=== PATIENT | male | born 1950 | race Caucasian/White ===

== ENCOUNTER 2020-04-03 15:11 | Outpatient (CLI) | payer MEDICARE, SELFPAY ==
--- NOTE | ~2020-04-03 | XR_ITS ---
EXAMINATION: XR ankle RT min 3V DATE: 04/03/2020 15:35 INDICATION: Right ankle pain. TECHNIQUE: 4 views of right ankle were obtained. COMPARISON: Right ankle radiographs 07/10/2008 FINDINGS: Bone alignment is normal. No fracture. There is mild osteoarthritis of the ankle joint and talonavicular joint. There is medial ankle soft tissue swelling. IMPRESSION: 1. Mild polyarticular osteoarthritis. Reviewed, dictated and finalized at location A.
== END 2020-04-03 15:12 | disposition home or self-care (01) ==
LOC: ANHIMG 15:17
PROVIDERS: PCP Internal Medicine; Visit Provider Nurse Practitioner
DX: M19.071 Primary osteoarthritis, right ankle and foot (principal)
CPT/HCPCS: 73610

== ENCOUNTER 2020-05-13 07:33 | Outpatient (CLI) | payer MEDICARE, SELFPAY ==
[2020-05-13 07:53] LABS: Basophils Absolute Auto 0.1 K/mm3 (0.0-0.1); Basophils Percent Auto 1.5 % (0.2-1.2); Eosinophils Absolute Auto 0.4 K/mm3 (0-0.3); Eosinophils Percent Auto 6.6 % (0-4.4); Hematocrit 48.4 % (42.0-52.0); Immature Granulocyte Absolute 0.04 K/mm3 (0.00-0.031); Immature Granulocyte Percent A 0.7 % (0-0.5); Lymphocytes Absolute Auto 1.59 K/mm3 (0.9-3.2); Lymphocytes Percent Auto 26.9 % (18.3-44.2); Mean Corpuscular HGB Conc 33.1 g/dl (32-36); Mean Corpuscular Hemoglobin 29.6 pg (26-34); Mean Corpuscular Volume 89.6 fl (80-100); Mean Platelet Volume 9.5 fl (7.4-10.4); Monocytes Absolute Auto 0.7 K/mm3 (0.1-0.6); Monocytes Percent Auto 12.5 % (2.6-8.5); Neutrophils Absolute Auto 3.1 K/mm3 (1.3-6.7); Neutrophils Percent Auto 51.8 % (45.5-73.1); Platelet Count Result 246 k/mm3 (150-375); Red Cell Distribution Width 13.5 % (11.5-14.5); White Blood Count 5.9 K/mm3 (4.5-10.0)
[2020-05-13 08:04] LABS: Alanine Aminotransferase 19 U/L (4-50); Albumin Level 4.1 g/dL (3.5-5.1); Alkaline Phosphatase 63 U/L (38-126); Anion Gap 8 mmol/L (8-16); Aspartate Amino Transferase 32 U/L (17-59); Bilirubin,Total 0.6 mg/dL (0.2-1.3); Blood Urea Nitrogen 21 mg/dL (9-20); Calcium 8.4 mg/dL (8.4-10.2); Carbon Dioxide 26 mmol/L (22-30); Chloride 105 mmol/L (98-107); Cholesterol 182 mg/dL (0-200); Estimated Glomerular Filt Rate > 60; Glucose 102 mg/dL (75-110); HDL Direct 51 mg/dL; Potassium 4.3 mmol/L (3.4-5.0); Sodium 139 mmol/L (137-145); Triglycerides 138 mg/dL (<150)
[2020-05-13 08:13] LABS: LDL Cholesterol Direct 101 mg/dL
[2020-05-13 08:32] LABS: Prostate Specific Antigen 0.6 ng/mL (< OR = 4.0)
== END 2020-05-13 07:34 | disposition home or self-care (01) ==
PROVIDERS: PCP Internal Medicine; Visit Provider Internal Medicine
DX: Z12.5 Encounter for screening for malignant neoplasm of prostate (principal); Z51.81 Encounter for therapeutic drug level monitoring; I10 Essential (primary) hypertension; Z79.899 Other long term (current) drug therapy
CPT/HCPCS: 36415; 80053; 80061; 84153; 84443; 85025; G0103

== ENCOUNTER 2020-05-30 08:25 | Outpatient (NON) | payer MEDICARE, SELFPAY ==
[2020-05-30 11:34] LABS: Influenza Control Positive
[2020-05-30 22:01] LABS: SARS-CoV-2 RNA PCR Positive
== END 2020-05-30 08:26 ==
PROVIDERS: PCP Internal Medicine; Visit Provider Internal Medicine
DX: U07.1 COVID-19 (principal)
CPT/HCPCS: 87635; 87804; C9803; U0003

== ENCOUNTER 2020-05-30 09:02 | Outpatient (CLI) | payer MEDICARE, SELFPAY ==
--- NOTE | ~2020-05-30 | XR_ITS ---
XR chest 2V 05/30/2020 09:35 Indication: Cough Procedure: PA and lateral views of the chest Comparison: No prior studies for comparison. Findings: There are patchy bilateral infiltrates of the mid and lower lung zones, compatible with pne umonia. Heart size normal. There are vertebroplasty changes in the lower thoracic spine with spinal f usion hardware partially visualized. There is scoliosis. Impression: 1: Patchy infiltrates of the mid and lower lung zones, compatible with pneumonia. Reviewed, dictated and finalized at location A. C STORE MANAGER Impression: 1: Patchy infiltrates of the mid and lower lung zones, compatible with pneumoni a.
[2020-05-30 10:01] LABS: Basophils Percent Auto 0.5 % (0.2-1.2); Eosinophils Percent Auto 0.3 % (0-4.4); Hemoglobin 15.5 g/dL (14.0-18.0); Immature Granulocyte Absolute 0.06 K/mm3 (0.00-0.031); Lymphocytes Absolute Auto 1.01 K/mm3 (0.9-3.2); Lymphocytes Percent Auto 16.7 % (18.3-44.2); Mean Corpuscular HGB Conc 33.7 g/dl (32-36); Mean Corpuscular Hemoglobin 29.6 pg (26-34); Mean Platelet Volume 10.1 fl (7.4-10.4); Monocytes Absolute Auto 0.8 K/mm3 (0.1-0.6); Monocytes Percent Auto 13.4 % (2.6-8.5); Neutrophils Absolute Auto 4.1 K/mm3 (1.3-6.7); Neutrophils Percent Auto 68.1 % (45.5-73.1); Platelet Count Result 217 k/mm3 (150-375); Red Blood Count 5.23 M/mm3 (4.6-6.20); Red Cell Distribution Width 13.2 % (11.5-14.5)
[2020-05-30 10:21] LABS: Alanine Aminotransferase 26 U/L (4-50); Albumin Level 3.7 g/dL (3.5-5.1); Alkaline Phosphatase 102 U/L (38-126); Anion Gap 8 mmol/L (8-16); Aspartate Amino Transferase 48 U/L (17-59); Blood Urea Nitrogen 18 mg/dL (9-20); Calcium 8.3 mg/dL (8.4-10.2); Carbon Dioxide 29 mmol/L (22-30); Chloride 98 mmol/L (98-107); Estimated Glomerular Filt Rate > 60; Glucose 97 mg/dL (75-110); Sodium 135 mmol/L (137-145)
== END 2020-05-30 09:03 | disposition home or self-care (01) ==
PROVIDERS: PCP Internal Medicine; Visit Provider Internal Medicine
DX: R05 Cough (principal); I10 Essential (primary) hypertension; R91.8 Other nonspecific abnormal finding of lung field
CPT/HCPCS: 36415; 71046; 80053; 85025; 87635; 87804; C9803; U0003

== ENCOUNTER 2020-06-01 10:23 | Inpatient (IN) | payer MEDICARE, SELFPAY ==
[2020-06-01] VITALS (16 sets, daily range): BP systolic 120–168; BP diastolic 63–98; PULSE 77–110; RESP 16–24; TEMP 36.3–37.1; O2SAT 89–96; BMI 35.5
--- NOTE | ~2020-06-01 | CT_ITS ---
EXAMINATION: CTA chest PE protocol DATE: 06/01/2020 14:08 INDICATION: Shortness of breath. COVID-19 pneumonia. TECHNIQUE: Computed tomography angiography (CTA) of the chest was performed with 100 mL Omnipaque-350 intravenous contrast timed to evaluate the pulmonary arteries. Coronal maximum intensity projection 3D-reconstructions were created by the technologist. Automated exposure control and iterative reconst ruction technique were employed. The dose-length product was 803.86 mGy-cm. COMPARISON: Chest single view 06/01/2020 FINDINGS: There are patchy groundglass and airspace opacities throughout the lungs bilaterally, worst in the lower lobes. A calcified right lung nodule and calcified right hilar lymph nodes are consiste nt with old granulomatous disease. No pleural effusion. The heart size is normal. No pericardial effu harsh. There is no pulmonary embolus. There is a small sliding hiatal hernia. Calcifications in the sp mirza are consistent with old granulomatous disease. There is severe cervical and thoracic spondylosis . There are changes of vertebroplasty at T11 and T12. There are changes of posterior fusion procedure involving T12. IMPRESSION: 1. No pulmonary embolus. Sensitivity is moderately decreased by motion artifact. 2. Multifocal pneumonia. 3. Small sliding hiatal hernia. Reviewed, dictated and finalized at location A. UTERIZED MILL RECORDER IMPRESSION: 1. No pulmonary embolus. Sensitivity is moderately decreased by motion artifact . 2. Multifocal pneumonia. 3. Small sliding hiatal hernia.
--- NOTE | ~2020-06-01 | XR_ITS ---
EXAMINATION: XR chest 1V portable DATE: 06/01/2020 11:40 INDICATION: Shortness of breath. COVID-19 pneumonia. TECHNIQUE: A single frontal view of the chest was obtained. COMPARISON: Chest 2 views 05/30/2020, CT abdomen and pelvis 05/13/2019 FINDINGS: There are patchy airspace opacities in all lung zones bilaterally. No pleural effusion or p neumothorax. The heart size is normal. There are changes of posterior fusion procedure in lumbar spin e. IMPRESSION: 1. Worsened diffuse lung disease, consistent with pneumonia. Reviewed, dictated and finalized at location A. DHOOD DEVELOPMENT TEACHER
--- NOTE | ~2020-06-01 | XR_ITS ---
EXAMINATION: XR chest 1V portable EXAM DATE: 06/06/2020 06:21 INDICATION: COVID 19 pneumonia. TECHNIQUE: Portable AP frontal chest x-ray was obtained. Comparison is made to prior examination from 06/01/2020. FINDINGS: There is bilateral airspace disease, opacities appear slightly more linear, better defined than on prior study, but otherwise no appreciable change in extent of disease. No pneumothorax or ple ural effusion. Cardiomediastinal silhouette is normal. Thoracolumbar fusion hardware and thoracic humphrey tebral plasties. IMPRESSION: Moderate amount of bilateral COVID 19 pneumonia, stable or slight improvement. Reviewed, dictated and finalized at location A. FOLIO SPECIALIST
--- NOTE | 2020-06-01 10:56 | ECG_ITS ---
Measurements Intervals [place]az Rate: 98 P: 28 AR: 164 QRS: -34 QRSD: 97 T: -25 QT: 335 QTc: 429 Interpretive Statements SINUS RHYTHM POSSIBLE LEFT ATRIAL ENLARGEMENT LEFT AXIS DEVIATION BORDERLINE R WAVE PROGRESSION, ANTERIOR LEADS BORDERLINE T WAVE ABNORMALITY- ANTEROLAT/INF LEADS BASELINE ARTIFACT- I, II, AVR, AVF, V3 BORDERLINE ECG Electronically Signed On 06-01-2020 16:55:37 SENIOR OFFICE SUPPORT ASSISTANT SOSA by Joshua Gray D.O.
[2020-06-01] MEDS: LACTATED RINGERS 1,000 ML 999 ML IV CONT (11:17)
[2020-06-01 12:04] LABS: Basophils Percent Auto 0.1 % (0.2-1.2); Eosinophils Percent Auto 0.1 % (0-4.4); Hemoglobin 15.6 g/dL (14.0-18.0); Immature Granulocyte Absolute 0.06 K/mm3 (0.00-0.031); Immature Granulocyte Percent A 0.9 % (0-0.5); Lymphocytes Absolute Auto 0.79 K/mm3 (0.9-3.2); Lymphocytes Percent Auto 11.3 % (18.3-44.2); Mean Corpuscular HGB Conc 34.7 g/dl (32-36); Mean Corpuscular Hemoglobin 29.9 pg (26-34); Mean Corpuscular Volume 86.4 fl (80-100); Mean Platelet Volume 9.8 fl (7.4-10.4); Monocytes Absolute Auto 0.8 K/mm3 (0.1-0.6); Monocytes Percent Auto 10.9 % (2.6-8.5); Neutrophils Absolute Auto 5.4 K/mm3 (1.3-6.7); Neutrophils Percent Auto 76.7 % (45.5-73.1); Platelet Count Result 262 k/mm3 (150-375); Red Blood Count 5.21 M/mm3 (4.6-6.20); Red Cell Distribution Width 12.8 % (11.5-14.5)
[2020-06-01 12:09] LABS: Prothrombin Time 13.9 Seconds (11.1-14.7)
[2020-06-01 12:10] LABS: Partial Thromboplastin Time 31.7 SECONDS (22.3-36.8)
[2020-06-01 12:13] LABS: D Dimer 0.64 ug/mL (<0.48)
[2020-06-01 12:18] LABS: Alanine Aminotransferase 31 U/L (4-50); Albumin Level 3.6 g/dL (3.5-5.1); Alkaline Phosphatase 108 U/L (38-126); Anion Gap 11 mmol/L (8-16); Aspartate Amino Transferase 55 U/L (17-59); Blood Urea Nitrogen 14 mg/dL (9-20); CRP 6.2 mg/dL (<1.0); Calcium 8.2 mg/dL (8.4-10.2); Carbon Dioxide 23 mmol/L (22-30); Chloride 97 mmol/L (98-107); Estimated CRCL calculation 85 ml/min; Estimated Glomerular Filt Rate > 60; Glucose 103 mg/dL (75-110); Potassium 3.8 mmol/L (3.4-5.0); Sodium 131 mmol/L (137-145)
[2020-06-01 12:22] LABS: Lactic Acid Reflex 1.6 mmol/L (0.7-2.1)
[2020-06-01 12:25] LABS: Troponin I < 0.012 ng/mL (0.000-0.034)
--- NOTE | 2020-06-01 12:51 | ED.SOB ---
HPI - SOB/Dyspnea General Chief Complaint: Shortness of Breath/Dyspnea <Jose De Jesus Laura PonceNAT Last Filed: 06/01/20 14:29> Stated Complaint: +COVID POSITIVE PNEUMONIA <Jose De Jesus Serra PA-C Last Filed: 06/01/20 14:29> Time Seen by Provider: 06/01/20 10:55 <NAT Boogie Last Filed: 06/01/20 14:29> Source: patient <Jose De Jesus SerraNAT Maxwell Last Filed: 06/01/20 14:29> Mode of arrival: ambulatory <NAT Boogie Last Filed: 06/01/20 14:29> Limitations: no limitations <Jose De Jesus Serra PA-C Maxwell Last Filed: 06/01/20 14:29> History of Present Illness HPI Narrative: Patient is a 69-year-old male Covid positive who presents with worsening shortness of breath fatigue and weakness intermittent fevers patient is in his 10th day of COVID-19 has been followed by primary care for this despite his home medications he is having no improvement is also had some loose stools decreased appetite and decreased p.o. intake secondary to nausea and GI upset <Jose De Jesus Serra PA-C Last Filed: 06/01/20 14:29> Related Data Allergies/Adverse Reactions: Allergies Allergy/AdvReac Type Severity Reaction Status Date / Time No Known Allergies Allergy Verified 06/01/20 18:01 <Jose De Jesus Serra PA-C Last Filed: 06/01/20 14:29> Review of Systems Review of Systems: All systems reviewed & are unremarkable except as noted in HPI and below <Jose De Jesus Serra PA-C Last Filed: 06/01/20 14:29> [facility] Past Medical History Medical History: Medical History Dyslipidemia HTN (hypertension) <NAT Boogie Last Filed: 06/01/20 14:29> Surgical History Surgical History: Surgical History (Updated 06/01/20 @ 17:53 by Ese Michele NP) H/O thumb surgery both thumbs H/O umbilical hernia repair 2010 H/O: knee surgery History of cataract surgery History of removal of pigmented skin lesion Previous back surgery rods placed S/P tonsillectomy and adenoidectomy <NAT Boogie Last Filed: 06/01/20 14:29> Family History Family History: Family History Father Hypertension Family history of seizure disorder Mother Cerebrovascular accident <NAT Boogie Last Filed: 06/01/20 14:29> Social History Social History: Social History (Updated 06/01/20 @ 17:55 by Ese Michele NP) Social History: The patient is and lives with his . His is the durable power deputy county attorney for healthcare. The patient has 3 children. The patient desires to be a full code. Patient is a lifelong nonsmoker. No alcohol marijuana or illicit drugs. 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 Smoking status: Never smoker Second hand tobacco smoke exposure: No Alcohol intake: never Substance use: never Gender identity (if verbalized by the patient): Male Sexual Orientation (if Verbalized by the Patient): Straight or Heterosexual Spiritual care concerns: No <Jose De Jesus Serra PA-C - Last Filed: 06/01/20 14:29> Exam Narrative: Exam Narrative: GENERAL: Ill-appearing, well-nourished, and in no acute distress. HEAD: Normocephalic, atraumatic. EYES: PERRLA and EOMI. ENT: Nares clear, no rhinorrhea or epistaxis. Mucous membranes moist. CHEST: Clear to auscultation. No respiratory distress. Crackles throughout the lung bases HEART: Regular rate and rhythm. No murmur heard. Normal peripheral pulses. ABDOMEN: Soft, nontender, nondistended EXTREMITIES: Normal range of motion. No edema. SKIN: Warm, dry, no rash. NEURO: No focal deficits. Alert and oriented x3. Cranial nerves II through XII grossly intact PSYCH: Normal mood and affect. <NAT Boogie Last Filed: 06/01/20 14:29> Course Course Emergency Course: Patient with worsening COVID-19 pneumonia will be brought into
[2020-06-01 14:22] LABS: Alveolar/Arterial O2 Gradient 101.6 mmHg; Base Excess ABG -1.1 mEq/l (+/-2.0); Carboxyhemoglobin 0.6 % THb (0-2.0); Device ROOM AIR; Fractional Inspired Oxygen 28 %; HCO3 ABG 21.5 mEq/l (22.0-26.0); Methemoglobin ABG 0.2 %THb (0-1.5); Modified Allen's Test Pass; Oxygen Content ABG 19.1 %vol (16.0-22.0); Oxygen Saturation ABG 93.4 % (95.0-100.0); PCO2 ABG 30.4 mmHg (35.0-45.0); PO2 ABG 62.2 mmHg (80.0-100.0); PO2 FiO2 Ratio Arterial Blood 2.22 %; Reduced Hemoglobin 7.2 %THb (0-5.0); Site Drawn RIGHT RADIAL; Total Hemoglobin 14.8 g/dL (12.0-18.0); pH ABG 7.467 (7.350-7.450)
[2020-06-01] MEDS: DEXAMETHASONE SOD PHOS INJ 4 MG/ML VIAL 6 MG IV PUSH (14:26)
[2020-06-01] MEDS: REMDESIVIR 200 MG/NS 250 ML 200 MG/250 ML BAG 250 MG IVPB (14:27)
--- NOTE | 2020-06-01 17:39 | PM.IMHP ---
H&P: HPI History of Present Illness Date/Time: 06/01/20 17:39 Chief Complaint: Dyspnea Narrative: Jemal Roa is a 69 year old male who has a history of hypertension and hyperlipidemia. The patient was recently diagnosed with pneumonia and was given Levaquin. The patient tested positive for COVID approximately 2 days ago on 05/30/2020. And tested negative for influenza. The patient was told to stop his Levaquin since it was COVID pneumonia.. The patient has had worsening shortness of breath and fatigue. The patient has been having fevers for about 10 days. Patient has been having some loose stools at home and decreased appetite. He still has taste and smell. He has had nausea and GI upset. Patient's T-max was 98.8? blood pressure 144/98. The patient stated that he did not take his lisinopril this morning. Liver enzymes are within normal limits. Foner was negative. The patient was saturating 89% on room air when he was placed on oxygen at 2 L per nasal cannula he came up to 94%. And started on dexamethasone and remdesivir. CTA was read as no pulmonary embolus. Sensitivity is moderately decreased by motion artifact. Multifocal pneumonia. Small sliding hiatal hernia. Patient is being admitted into observation status on the date of service 06/01/2020 Review of Systems Review of Systems: All systems reviewed & are unremarkable except as noted in HPI and below Constitutional: Constitutional: Reports as per HPI and Reports no additional constitutional complaints Eyes: Eyes: Reports as per HPI and Reports no additional eye complaints ENT: Reports system reviewed and no additional complaints, except as documented and Reports Normal hearing present Cardiovascular: Cardiovascular: Reports no additional cardiovascular complaints Respiratory: Respiratory: Reports no additional respiratory complaints and Reports no additional respiratory complaints Gastrointestinal: Gastrointestinal: Reports as per HPI and Reports no additional gastrointestinal complaints Musculoskeletal: Musculoskeletal: Reports no additional musculoskeletal complaints Integumentary/Breasts: Skin/Breast: Reports system reviewed and no additional complaints, except as docu and Reports as per HPI Neurologic: Reports system reviewed and no additional complaints, except as documented, Reports as per HPI and Reports Normal hearing present Psychiatric: Psychiatric: Reports no additional psychiatric complaints and Reports as per HPI Endocrine: Endocrine: Reports no additional endocrine complaints Hematologic/Lymphatic: Hematologic/Lymphatic: Reports no additional hematologic/lymphatic complaints Allergic/Immunologic: Allergic/Immunologic: Reports no additional allergic/immunologic complaints PMFSH Past Medical History Medical History Dyslipidemia HTN (hypertension) Surgical History Surgical History (Updated 06/01/20 @ 17:53 by Ese Michele NP) H/O thumb surgery both thumbs H/O umbilical hernia repair 2010 H/O: knee surgery History of cataract surgery History of removal of pigmented skin lesion Previous back surgery rods placed S/P tonsillectomy and adenoidectomy Family History Family History Father Hypertension Family history of seizure disorder Mother Cerebrovascular accident Social History Social History (Updated 06/01/20 @ 17:55 by Ese Michele NP) Social History: The patient is and lives with his . His is the durable power attorney law clerk for healthcare. The patient has 3 children. The patient desires to be a full code. Patient is a lifelong nonsmoker. No alcohol marijuana or illicit drugs. 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 Smoking status: Never smoker Alcohol intake: never Substance use: never Gender identity (if verbalized by the patient): Male Sexual Orientat
--- NOTE | 2020-06-01 17:56 | ADMGEN ---
This patient, Jemal Roa, was admitted to 3 [facility] Surg Room 320-01. Patient/family oriented to hospital policies and general routines including ID bracelet, bed and alarms, visiting hours, pain management, procedures, bathroom and other care routines, personal items, smoking policy, room service/diet, and visiting hours. Information on how to activate the Rapid Response Team has been discussed. Patient/Family are encouraged to report perceived risks to care and to ask questions if they do not understand what they are told or what they should do.
[2020-06-01] MEDS: guaiFENesin/DEXTROMETHORPHAN 10 ML UDC PO (18:18)
[2020-06-01] MEDS: lisinopriL 20 MG TABLET PO (18:22)
[2020-06-01] MEDS: ALBUTEROL SULFATE (*SP) AEROSOL 1 PUFF 2 PUFF INHALATION (20:06)
[2020-06-01] MEDS: FAMOTIDINE 20 MG/2 ML VIAL IV PUSH (21:33)
[2020-06-02] VITALS (7 sets, daily range): BP systolic 115–127; BP diastolic 53–85; PULSE 68–92; RESP 18–20; TEMP 36.3–36.8; O2SAT 86–94; BMI 35.5
[2020-06-02] MEDS: ALBUTEROL SULFATE (*SP) AEROSOL 1 PUFF 2 PUFF INHALATION ×2 (01:49→20:35)
[2020-06-02 07:15] LABS: Basophils Percent Auto 0.2 % (0.2-1.2); Hematocrit 44.7 % (42.0-52.0); Hemoglobin 15.1 g/dL (14.0-18.0); Immature Granulocyte Absolute 0.05 K/mm3 (0.00-0.031); Immature Granulocyte Percent A 0.9 % (0-0.5); Lymphocytes Percent Auto 12.7 % (18.3-44.2); Mean Corpuscular HGB Conc 33.8 g/dl (32-36); Mean Corpuscular Hemoglobin 29.2 pg (26-34); Mean Corpuscular Volume 86.5 fl (80-100); Monocytes Absolute Auto 0.9 K/mm3 (0.1-0.6); Monocytes Percent Auto 16.9 % (2.6-8.5); Neutrophils Absolute Auto 3.8 K/mm3 (1.3-6.7); Neutrophils Percent Auto 69.3 % (45.5-73.1); Platelet Count Result 293 k/mm3 (150-375); Red Blood Count 5.17 M/mm3 (4.6-6.20); Red Cell Distribution Width 12.9 % (11.5-14.5); White Blood Count 5.5 K/mm3 (4.5-10.0)
[2020-06-02 07:33] LABS: Alanine Aminotransferase 38 U/L (4-50); Anion Gap 8 mmol/L (8-16); Blood Urea Nitrogen 16 mg/dL (9-20); CRP 6.3 mg/dL (<1.0); Calcium 8.4 mg/dL (8.4-10.2); Carbon Dioxide 29 mmol/L (22-30); Chloride 99 mmol/L (98-107); Estimated CRCL calculation 77 ml/min; Estimated Glomerular Filt Rate > 60; Glucose 118 mg/dL (75-110); Lactate Dehydrogenase 743 U/L (313-618); Magnesium 2.1 mg/dL (1.6-2.3); Potassium 4.3 mmol/L (3.4-5.0); Sodium 136 mmol/L (137-145)
[2020-06-02] MEDS: FAMOTIDINE 20 MG/2 ML VIAL IV PUSH ×2 (09:17→20:19)
[2020-06-02] MEDS: ENOXAPARIN 40 MG/0.4 ML SYRINGE SUB-Q ×2 (09:17→20:19)
[2020-06-02] MEDS: DEXAMETHASONE SOD PHOS INJ 4 MG/ML VIAL 6 MG IV PUSH (09:17)
[2020-06-02] MEDS: lisinopriL 20 MG TABLET PO (09:17)
[2020-06-02] MEDS: REMDESIVIR 100 MG/NS 250 ML 100 MG/250 ML BAG 250 MG IVPB (10:19)
--- NOTE | 2020-06-02 12:32 | PM.IMPN ---
Progress Note: A&P Assessment and Plan (1) Pneumonia due to 2019 novel coronavirus: Code(s): U07.1 - COVID-19; J12.89 - Other viral pneumonia Status: Acute Assessment and Plan: Patient known COVID positive presents with worsening shortness of breath; CTA chest shows diffuse bilateral pneumonia without an identified pulmonary embolism, decreased sensitivity due to motion artifact; COVID positive 05/30/20. Continue dexamethasone (day 2); remdesivir (day 2). Monitor LFTs on Remdesivir as well as other acute phase reactants. Continue supplemental O2 and wean as tolerated to keep O2 saturations > 90%. Continue supportive care with Tylenol for fevers, albuterol MDI, Robitussin, incentive spirometer, supplementation of Zinc, vitamins C and D. DVT prophylaxis with BID Lovenox. (2) Acute respiratory failure with hypoxia: Code(s): J96.01 - Acute respiratory failure with hypoxia Status: Acute Assessment and Plan: Secondary to above. (3) HTN (hypertension): Qualifiers: Hypertension type: essential hypertension Qualified Code(s): I10 - Essential (primary) hypertension Code(s): I10 - Essential (primary) hypertension Status: Chronic Assessment and Plan: BP stable, last 117/80 maintained on his home lisinopril. Monitor BP and adjust treatment as needed. (4) Dyslipidemia: Code(s): E78.5 - Hyperlipidemia, unspecified Status: Chronic Assessment and Plan: Resume home statin therapy. Subjective Date/time seen: 06/02/20 12:15 Interval history: Mr. Roa is a pleasant 69-year-old male admitted for acute respiratory failure secondary to COVID pneumonia. Tells me he is feeling a little better today, shortness of breath improved. Did not sleep much last night. Denies chest pain. Appetite is little better than days prior and he has tolerated some oral intake without nausea, vomiting, or abdominal pain. Review of Systems Review of Systems: All systems reviewed & are unremarkable except as noted in HPI and below Exam Narrative: Exam Narrative: General: Male resting comfortably supine in bed in no acute distress. HEENT: Normocephalic, EOMI, oral mucosa moist. Cardiovascular: Rate and rhythm are regular. Respiratory: Decreased breath sounds bilaterally. Respirations even and non-labored. Tolerating 2 L O2 nasal cannula. Abdomen: Soft, non-tender, non-distended, bowel sounds present. Extremities: Peripheral pulses intact. No edema or pain to palpation. Neuro: Awake and alert, oriented. No focal neurological deficits. Speech is clear. Objective Data Vital Signs Vital Signs: Last Vital Signs Temp 98.0 F 06/02/20 12:00 Pulse 86 06/02/20 12:00 Resp 18 06/02/20 12:00 BP 117/80 06/02/20 12:00 Pulse Ox 89 L 06/02/20 12:00 Intake/Output Intake/Output: Intake & Output 05/30/20 05/31/20 06/01/20 06/02/20 23:59 23:59 23:59 23:59 Intake Total 1250 740 Output Total 600 Balance 1250 140 Meds/Results Medications: Active Medications Generic Name Dose Route Start Last Admin Trade Name Sherifq PRN Reason Stop Dose Admin Albuterol 2 puff 06/01/20 20:00 06/02/20 01:49 Albuterol Sulfate (*Sp) Aerosol 1 Puff INHALATION 2 puff Q6HRT FRANCES Administration Ascorbic Acid 500 mg 06/02/20 09:20 Ascorbic Acid 500 Mg Tablet PO DAILY FRANCES Dexamethasone Sodium Phosphate 6 mg 06/02/20 09:00 06/02/20 09:17 Dexamethasone Sod Phos Inj 4 Mg/Ml Vial IV PUSH 06/11/20 09:01 6 mg DAILY FRANCES Administration Enoxaparin Sodium 40 mg 06/02/20 21:00 Enoxaparin 40 Mg/0.4 Ml Syringe SUB-Q Q12HR FRANCES Famotidine 20 mg 06/01/20 21:00 06/02/20 09:17 Famotidine 20 Mg/2 Ml Vial IV PUSH 20 mg Q12HR FRANCES Administration Guaifenesin
[2020-06-02] MEDS: ZINC SULFATE 220 MG CAPSULE PO (17:46)
[2020-06-02] MEDS: CHOLECALCIFEROL 1,000 UNITS TABLET 1000 UNITS PO (17:46)
[2020-06-02] MEDS: ASCORBIC ACID 500 MG TABLET PO (17:46)
[2020-06-02] MEDS: guaiFENesin/DEXTROMETHORPHAN 10 ML UDC PO (17:48)
[2020-06-03] VITALS: BP 129/81; PULSE 61; RESP 20; TEMP 36.6; O2SAT 98
[2020-06-03] MEDS: ALBUTEROL SULFATE (*SP) AEROSOL 1 PUFF 2 PUFF INHALATION ×4 (02:37→20:18)
[2020-06-03] MEDS: guaiFENesin/DEXTROMETHORPHAN 10 ML UDC PO ×3 (02:42→20:23)
[2020-06-03 04:00] VITALS: BP 127/74; PULSE 67; RESP 20; TEMP 36.6; O2SAT 90
[2020-06-03 06:56] LABS: Basophils Percent Auto 0.1 % (0.2-1.2); Hematocrit 42.5 % (42.0-52.0); Hemoglobin 14.4 g/dL (14.0-18.0); Immature Granulocyte Absolute 0.09 K/mm3 (0.00-0.031); Immature Granulocyte Percent A 0.9 % (0-0.5); Lymphocytes Absolute Auto 0.83 K/mm3 (0.9-3.2); Lymphocytes Percent Auto 8.2 % (18.3-44.2); Mean Corpuscular HGB Conc 33.9 g/dl (32-36); Mean Corpuscular Hemoglobin 29.7 pg (26-34); Mean Corpuscular Volume 87.6 fl (80-100); Monocytes Absolute Auto 1.5 K/mm3 (0.1-0.6); Monocytes Percent Auto 14.3 % (2.6-8.5); Neutrophils Absolute Auto 7.8 K/mm3 (1.3-6.7); Neutrophils Percent Auto 76.5 % (45.5-73.1); Platelet Count Result 295 k/mm3 (150-375); Red Blood Count 4.85 M/mm3 (4.6-6.20); Red Cell Distribution Width 13.1 % (11.5-14.5); White Blood Count 10.2 K/mm3 (4.5-10.0)
[2020-06-03 07:11] LABS: Alanine Aminotransferase 39 U/L (4-50); Albumin Level 3.1 g/dL (3.5-5.1); Alkaline Phosphatase 71 U/L (38-126); Anion Gap 5 mmol/L (8-16); Aspartate Amino Transferase 47 U/L (17-59); Bilirubin,Total 0.8 mg/dL (0.2-1.3); Blood Urea Nitrogen 25 mg/dL (9-20); Calcium 8.2 mg/dL (8.4-10.2); Carbon Dioxide 28 mmol/L (22-30); Chloride 101 mmol/L (98-107); Estimated CRCL calculation 77 ml/min; Estimated Glomerular Filt Rate > 60; Glucose 114 mg/dL (75-110); Magnesium 2.1 mg/dL (1.6-2.3); Potassium 4.1 mmol/L (3.4-5.0); Sodium 134 mmol/L (137-145)
[2020-06-03 08:00] VITALS: BP 125/72; PULSE 67; RESP 18; TEMP 36.2; O2SAT 91
--- NOTE | 2020-06-03 10:45 | PC.NURSE ---
call to pharm to request missing meds
[2020-06-03] MEDS: DEXAMETHASONE SOD PHOS INJ 4 MG/ML VIAL 6 MG IV PUSH (10:51)
[2020-06-03] MEDS: ROSUVASTATIN 5 MG TABLET PO (10:51)
[2020-06-03] MEDS: ENOXAPARIN 40 MG/0.4 ML SYRINGE SUB-Q ×2 (10:52→20:18)
[2020-06-03] MEDS: FAMOTIDINE 20 MG/2 ML VIAL IV PUSH ×2 (10:53→20:17)
[2020-06-03] MEDS: REMDESIVIR 100 MG/NS 250 ML 100 MG/250 ML BAG 250 MG IVPB (10:54)
[2020-06-03 12:00] VITALS: BP 118/76; PULSE 68; RESP 16; TEMP 36.8; O2SAT 91
--- NOTE | 2020-06-03 12:17 | PC.NURSE ---
2nd call to pharm for missing a.m meds
--- NOTE | 2020-06-03 13:01 | PM.IMPN ---
Progress Note: A&P Assessment and Plan (1) Pneumonia due to 2019 novel coronavirus: Code(s): U07.1 - COVID-19; J12.89 - Other viral pneumonia Status: Acute Assessment and Plan: Patient known COVID positive presents with worsening shortness of breath; CTA chest shows diffuse bilateral pneumonia without an identified pulmonary embolism, decreased sensitivity due to motion artifact; COVID positive 05/30/20. Continue dexamethasone (day 3); remdesivir (day 3). Monitor LFTs on Remdesivir as well as other acute phase reactants. Continue supplemental O2 and wean as tolerated to keep O2 saturations > 90%. Continue supportive care with Tylenol for fevers, albuterol MDI, Robitussin, incentive spirometer, supplementation of Zinc, vitamins C and D. DVT prophylaxis with BID Lovenox. (2) Acute respiratory failure with hypoxia: Code(s): J96.01 - Acute respiratory failure with hypoxia Status: Acute Assessment and Plan: Secondary to above. (3) HTN (hypertension): Qualifiers: Hypertension type: essential hypertension Qualified Code(s): I10 - Essential (primary) hypertension Code(s): I10 - Essential (primary) hypertension Status: Chronic Assessment and Plan: BP stable, last 118/76 maintained on his home lisinopril. Monitor BP and adjust treatment as needed. (4) Dyslipidemia: Code(s): E78.5 - Hyperlipidemia, unspecified Status: Chronic Assessment and Plan: Resume home statin therapy. Subjective Date/time seen: 06/03/20 13:00 Interval history: Mr. Roa is a pleasant 69-year-old male admitted for acute respiratory failure secondary to COVID pneumonia. He reports feeling about the same as yesterday. Shortness of breath same as yesterday, denies chest pain. Appetite is improved and he has tolerated breakfast and lunch without nausea or vomiting. Review of Systems Review of Systems: All systems reviewed & are unremarkable except as noted in HPI and below Exam Narrative: Exam Narrative: General: Male resting comfortably sitting up in bedside chair in no acute distress. HEENT: Normocephalic, EOMI, oral mucosa moist. Cardiovascular: Rate and rhythm are regular. Respiratory: Decreased breath sounds bilaterally. Respirations even and non-labored. Tolerating 3 L O2 nasal cannula 93% at time of my encounter. Abdomen: Soft, non-tender, non-distended, bowel sounds present. Extremities: Peripheral pulses intact. No edema or pain to palpation. Neuro: Awake and alert, oriented. No focal neurological deficits. Speech is clear. Objective Data Vital Signs Vital Signs: Last Vital Signs Temp 98.2 F 06/03/20 12:00 Pulse 68 06/03/20 12:00 Resp 16 06/03/20 12:00 BP 118/76 06/03/20 12:00 Pulse Ox 91 06/03/20 12:00 Intake/Output Intake/Output: Intake & Output 05/31/20 06/01/20 06/02/20 06/03/20 23:59 23:59 23:59 23:59 Intake Total 1250 2470 860 Output Total 1600 Balance 1250 870 860 Meds/Results Medications: Active Medications Generic Name Dose Route Start Last Admin Trade Name Sherifq PRN Reason Stop Dose Admin Acetaminophen 650 mg 06/02/20 15:49 Acetaminophen 325 Mg Tablet PO Q4H PRN Pain or Fever Albuterol 2 puff 06/01/20 20:00 06/03/20 10:54 Albuterol Sulfate (*Sp) Aerosol 1 Puff INHALATION 2 puff Q6HRT FRANCES Administration Ascorbic Acid 500 mg 06/02/20 09:20 06/02/20 17:46 Ascorbic Acid 500 Mg Tablet PO 500 mg DAILY FRANCES Administration Dexamethasone Sodium Phosphate 6 mg 06/02/20 09:00 06/03/20 10:51 Dexamethasone Sod Phos Inj 4 Mg/Ml Vial IV PUSH 06/11/20 09:01 6 mg DAILY FRANCES Administration Enoxaparin Sodium 40 mg 06/02/20 21:00 06/03/20 10:52 Enoxaparin 40 Mg/0.4 Ml Syringe SUB-Q 40 mg
[2020-06-03] MEDS: ASCORBIC ACID 500 MG TABLET PO (13:19)
[2020-06-03] MEDS: CHOLECALCIFEROL 1,000 UNITS TABLET 1000 UNITS PO (13:19)
[2020-06-03] MEDS: ZINC SULFATE 220 MG CAPSULE PO (13:19)
[2020-06-03] MEDS: lisinopriL 20 MG TABLET PO (13:19)
[2020-06-03 16:00] VITALS: BP 122/68; PULSE 78; RESP 18; TEMP 36.8; O2SAT 92
[2020-06-03 20:00] VITALS: BP 127/62; PULSE 78; RESP 20; TEMP 37; O2SAT 90; O2SAT 92
[2020-06-04] VITALS (9 sets, daily range): BP systolic 108–146; BP diastolic 65–87; PULSE 62–85; RESP 15–20; TEMP 36.2–36.9; O2SAT 90–93
[2020-06-04] MEDS: ALBUTEROL SULFATE (*SP) AEROSOL 1 PUFF 2 PUFF INHALATION ×4 (02:06→20:57)
[2020-06-04] MEDS: guaiFENesin/DEXTROMETHORPHAN 10 ML UDC PO ×2 (02:06→20:57)
[2020-06-04 06:29] LABS: Basophils Percent Auto 0.1 % (0.2-1.2); Hematocrit 42.2 % (42.0-52.0); Hemoglobin 14.5 g/dL (14.0-18.0); Immature Granulocyte Absolute 0.13 K/mm3 (0.00-0.031); Immature Granulocyte Percent A 1.2 % (0-0.5); Lymphocytes Absolute Auto 0.71 K/mm3 (0.9-3.2); Lymphocytes Percent Auto 6.3 % (18.3-44.2); Mean Corpuscular HGB Conc 34.4 g/dl (32-36); Mean Corpuscular Hemoglobin 29.8 pg (26-34); Mean Corpuscular Volume 86.7 fl (80-100); Mean Platelet Volume 10.1 fl (7.4-10.4); Monocytes Absolute Auto 1.5 K/mm3 (0.1-0.6); Monocytes Percent Auto 13.2 % (2.6-8.5); Neutrophils Absolute Auto 8.9 K/mm3 (1.3-6.7); Neutrophils Percent Auto 79.2 % (45.5-73.1); Platelet Count Result 321 k/mm3 (150-375); Red Blood Count 4.87 M/mm3 (4.6-6.20); White Blood Count 11.3 K/mm3 (4.5-10.0)
[2020-06-04 07:54] LABS: Alanine Aminotransferase 38 U/L (4-50); Albumin Level 3.2 g/dL (3.5-5.1); Alkaline Phosphatase 60 U/L (38-126); Anion Gap 6 mmol/L (8-16); Aspartate Amino Transferase 47 U/L (17-59); Bilirubin,Total 0.9 mg/dL (0.2-1.3); Blood Urea Nitrogen 25 mg/dL (9-20); CRP 2.1 mg/dL (<1.0); Calcium 8.1 mg/dL (8.4-10.2); Carbon Dioxide 26 mmol/L (22-30); Chloride 101 mmol/L (98-107); Estimated CRCL calculation 86 ml/min; Estimated Glomerular Filt Rate > 60; Glucose 111 mg/dL (75-110); Magnesium 2.1 mg/dL (1.6-2.3); Potassium 4.7 mmol/L (3.4-5.0); Sodium 133 mmol/L (137-145)
[2020-06-04] MEDS: lisinopriL 20 MG TABLET PO (07:56)
[2020-06-04] MEDS: ASCORBIC ACID 500 MG TABLET PO (07:56)
[2020-06-04] MEDS: ENOXAPARIN 40 MG/0.4 ML SYRINGE SUB-Q ×2 (07:56→20:57)
[2020-06-04] MEDS: FAMOTIDINE 20 MG/2 ML VIAL IV PUSH ×2 (07:56→20:57)
[2020-06-04] MEDS: ZINC SULFATE 220 MG CAPSULE PO (07:57)
[2020-06-04] MEDS: CHOLECALCIFEROL 1,000 UNITS TABLET 1000 UNITS PO (07:57)
[2020-06-04] MEDS: ROSUVASTATIN 5 MG TABLET PO (07:57)
[2020-06-04] MEDS: DEXAMETHASONE SOD PHOS INJ 4 MG/ML VIAL 6 MG IV PUSH (07:57)
[2020-06-04] MEDS: REMDESIVIR 100 MG/NS 250 ML 100 MG/250 ML BAG 250 MG IVPB (09:08)
--- NOTE | 2020-06-04 15:02 | PM.IMPN ---
Progress Note: A&P Assessment and Plan (1) Pneumonia due to 2019 novel coronavirus: Code(s): U07.1 - COVID-19; J12.89 - Other viral pneumonia Status: Acute Assessment and Plan: -tested positive 05/30/20 -he continues to utilize oxygen and is 91% on 2 L -continue Remdesivir, Decadron and Lovenox -will monitor liver function test. -Continue supportive care with Tylenol for fevers, albuterol MDI, Robitussin, incentive spirometer, supplementation of Zinc, vitamins C and D. (2) Acute respiratory failure with hypoxia: Code(s): J96.01 - Acute respiratory failure with hypoxia Status: Acute Assessment and Plan: -Secondary to above. -continue oxygen supplementation (3) HTN (hypertension): Qualifiers: Hypertension type: essential hypertension Qualified Code(s): I10 - Essential (primary) hypertension Code(s): I10 - Essential (primary) hypertension Status: Chronic Assessment and Plan: Last blood pressure 120/68 -continue lisinopril. (4) Dyslipidemia: Code(s): E78.5 - Hyperlipidemia, unspecified Status: Chronic Assessment and Plan: Continue statin therapy Time Spent With Patient Time with patient: 25 - 35 minutes Subjective Date/time seen: 06/04/20 15:02 Interval history: Pt is a 69-year-old male here for COVID-19. Patient was seen today and states he is improving. He is now on 2 L and has no shortness of breath at rest. He has been up and going to the bathroom and feels short of breath occasionally. He states his appetite is better and he is eating more. Prior to his hospitalization, he had eaten in 10 days and thinks this is helping him feels stronger. He has no chest pain, diarrhea, fevers, chills, nausea or vomiting. Review of Systems Review of Systems: All systems reviewed & are unremarkable except as noted in HPI and below Exam Narrative: Exam Narrative: General: Well developed well nourished patient in NAD HEENT: normocephalic Neck: supple Neuro: Alert and oriented x4 CV:RRR Resp:CTA Abd: Soft, non distended. No pain to palpation. Positive bowel sounds Extremities: No swelling, erythema, or pain to palpation. Objective Data Vital Signs Vital Signs: Vital Signs - 24 hr 06/03/20 16:00 06/03/20 20:00 06/04/20 00:00 Temperature 98.3 F 98.6 F 97.9 F Pulse Rate 78 78 69 Respiratory Rate 18 20 20 Blood Pressure 122/68 127/62 146/79 H Pulse Oximetry 92 90 90 06/04/20 04:00 06/04/20 08:00 06/04/20 10:51 Temperature 98.0 F 97.2 F L Pulse Rate 79 62 85 Respiratory Rate 20 16 15 Blood Pressure 129/73 131/78 Pulse Oximetry 90 93 91 06/04/20 12:00 Temperature 97.9 F Pulse Rate 78 Respiratory Rate 16 Blood Pressure 120/68 Pulse Oximetry 91 Intake/Output Intake/Output: Intake & Output 06/01/20 06/02/20 06/03/20 06/04/20 23:59 23:59 23:59 23:59 Intake Total 1250 2470 2040 600 Output Total 1600 Balance 6460 655 5893 600 Meds/Results Medications: Active Medications Generic Name Dose Route Start Last Admin Trade Name Freq PRN Reason Stop Dose Admin Acetaminophen 650 mg 06/02/20 15:49 Acetaminophen 325 Mg Tablet PO Q4H PRN Pain or Fever Albuterol 2 puff 06/01/20 20:00 06/04/20 13:43 Albuterol Sulfate (*Sp) Aerosol 1 Puff INHALATION 2 puff Q6HRT FRANCES Administration Ascorbic Acid 500 mg 06/02/20 09:20 06/04/20 07:56 Ascorbic Acid 500 Mg Tablet PO 500 mg DAILY FRANCES Administration Dexamethasone Sodium Phosphate 6 mg 06/02/20 09:00 06/04/20 07:57 Dexamethasone Sod Phos Inj 4 Mg/Ml Vial IV PUSH 06/11/20 09:01 6 mg DAILY FRANCES Administration Enoxaparin Sodium 40 mg 06/02/20 21:00 06/04/20 07:56 Enoxaparin 40 Mg/0.4 Ml Syringe SUB-Q 40 mg Q12HR FRANCES Administration Famotidine 20 mg 06/01/20 21:00 06/04/20 07:56 Famotidine 20 Mg/2 Ml Vial IV PUSH 20 mg Q12HR FRANCES Administration Guaifenesin/Dextromethorphan
[2020-06-05] MEDS: guaiFENesin/DEXTROMETHORPHAN 10 ML UDC PO (01:51)
[2020-06-05] MEDS: ALBUTEROL SULFATE (*SP) AEROSOL 1 PUFF 2 PUFF INHALATION ×4 (01:52→20:30)
[2020-06-05 04:00] VITALS: BP 131/80; PULSE 64; RESP 18; TEMP 36.8; O2SAT 93
[2020-06-05 06:45] LABS: Hematocrit 42.6 % (42.0-52.0); Hemoglobin 14.6 g/dL (14.0-18.0); Mean Corpuscular HGB Conc 34.3 g/dl (32-36); Mean Corpuscular Hemoglobin 29.6 pg (26-34); Mean Corpuscular Volume 86.4 fl (80-100); Mean Platelet Volume 10.1 fl (7.4-10.4); Platelet Count Result 347 k/mm3 (150-375); Red Blood Count 4.93 M/mm3 (4.6-6.20); Red Cell Distribution Width 12.9 % (11.5-14.5); White Blood Count 12.9 K/mm3 (4.5-10.0)
[2020-06-05 08:00] VITALS: BP 145/92; PULSE 64; RESP 18; TEMP 36.5; O2SAT 91
[2020-06-05 08:01] LABS: Alanine Aminotransferase 43 U/L (4-50); Albumin Level 3.5 g/dL (3.5-5.1); Alkaline Phosphatase 70 U/L (38-126); Anion Gap 7 mmol/L (8-16); Aspartate Amino Transferase 41 U/L (17-59); Bilirubin,Total 0.9 mg/dL (0.2-1.3); Blood Urea Nitrogen 24 mg/dL (9-20); Calcium 8.5 mg/dL (8.4-10.2); Carbon Dioxide 30 mmol/L (22-30); Chloride 98 mmol/L (98-107); Estimated CRCL calculation 77 ml/min; Estimated Glomerular Filt Rate > 60; Glucose 98 mg/dL (75-110); Potassium 4.1 mmol/L (3.4-5.0); Sodium 135 mmol/L (137-145)
[2020-06-05] MEDS: CHOLECALCIFEROL 1,000 UNITS TABLET 1000 UNITS PO (09:15)
[2020-06-05] MEDS: ASCORBIC ACID 500 MG TABLET PO (09:15)
[2020-06-05] MEDS: DEXAMETHASONE SOD PHOS INJ 4 MG/ML VIAL 6 MG IV PUSH (09:15)
[2020-06-05] MEDS: ENOXAPARIN 40 MG/0.4 ML SYRINGE SUB-Q ×2 (09:16→20:31)
[2020-06-05] MEDS: FAMOTIDINE 20 MG/2 ML VIAL IV PUSH ×2 (09:16→20:31)
[2020-06-05] MEDS: lisinopriL 20 MG TABLET PO (09:16)
[2020-06-05] MEDS: ROSUVASTATIN 5 MG TABLET PO (09:16)
[2020-06-05] MEDS: ZINC SULFATE 220 MG CAPSULE PO (09:16)
[2020-06-05] MEDS: REMDESIVIR 100 MG/NS 250 ML 100 MG/250 ML BAG 250 MG IVPB (09:16)
[2020-06-05 12:00] VITALS: BP 130/85; PULSE 70; RESP 18; TEMP 36.9; O2SAT 91
[2020-06-05] MEDS: ALBUTEROL SULFATE (*SP) INHALER 1 PUFF (15:46)
[2020-06-05 16:00] VITALS: BP 134/83; PULSE 75; RESP 18; TEMP 36.9; O2SAT 90
--- NOTE | 2020-06-05 16:09 | PM.IMPN ---
Progress Note: A&P Assessment and Plan (1) Pneumonia due to 2019 novel coronavirus: Code(s): U07.1 - COVID-19; J12.89 - Other viral pneumonia Status: Acute Assessment and Plan: -tested positive 05/30/20 -he continues to utilize oxygen and is 91% on 2 L -continue Decadron and Lovenox -patient has finished rib does severe -liver function normal -Continue supportive care with Tylenol for fevers, albuterol MDI, Robitussin, incentive spirometer, supplementation of Zinc, vitamins C and D. (2) Acute respiratory failure with hypoxia: Code(s): J96.01 - Acute respiratory failure with hypoxia Status: Acute Assessment and Plan: -Secondary to above. -continue oxygen supplementation (3) HTN (hypertension): Qualifiers: Hypertension type: essential hypertension Qualified Code(s): I10 - Essential (primary) hypertension Code(s): I10 - Essential (primary) hypertension Status: Chronic Assessment and Plan: Last blood pressure 130/85 -continue lisinopril. (4) Dyslipidemia: Code(s): E78.5 - Hyperlipidemia, unspecified Status: Chronic Assessment and Plan: Continue statin therapy Subjective Date/time seen: 06/05/20 16:09 Interval history: Pt is a 69-year-old male here for COVID-19. Patient was seen today and states he is improving. He does not have any shortness of breath at rest or walking to the bathroom. No significant cough. He has been eating about the same since admission. Prior to his hospitalization, he hadn't eaten in 10 days and thinks this is helping him feels stronger. He denies weakness. He has no chest pain, diarrhea, fevers, chills, nausea or vomiting. Exam Narrative: Exam Narrative: General: Well developed well nourished patient in NAD HEENT: normocephalic Neck: supple Neuro: Alert and oriented x4 CV:RRR Resp:CTA Abd: Soft, non distended. No pain to palpation. Positive bowel sounds Extremities: No swelling, erythema, or pain to palpation. Objective Data Vital Signs Vital Signs: Vital Signs - 24 hr 06/04/20 20:00 06/04/20 20:45 06/04/20 23:55 Temperature 98.0 F 98.4 F Pulse Rate 76 68 Respiratory Rate 20 20 Blood Pressure 114/65 133/87 Pulse Oximetry 90 90 90 06/05/20 04:00 06/05/20 08:00 06/05/20 12:00 Temperature 98.3 F 97.7 F 98.4 F Pulse Rate 64 64 70 Respiratory Rate 18 18 18 Blood Pressure 131/80 145/92 H 130/85 Pulse Oximetry 93 91 91 Intake/Output Intake/Output: Intake & Output 06/02/20 06/03/20 06/04/20 06/05/20 23:59 23:59 23:59 23:59 Intake Total 2470 2040 2130 930 Output Total 1600 Balance 870 2040 2130 930 Meds/Results Medications: Active Medications Generic Name Dose Route Start Last Admin Trade Name Freq PRN Reason Stop Dose Admin Acetaminophen 650 mg 06/02/20 15:49 Acetaminophen 325 Mg Tablet PO Q4H PRN Pain or Fever Albuterol 2 puff 06/01/20 20:00 06/05/20 14:05 Albuterol Sulfate (*Sp) Aerosol 1 Puff INHALATION 2 puff Q6HRT FRANCES Administration Ascorbic Acid 500 mg 06/02/20 09:20 06/05/20 09:15 Ascorbic Acid 500 Mg Tablet PO 500 mg DAILY FRANCES Administration Dexamethasone Sodium Phosphate 6 mg 06/02/20 09:00 06/05/20 09:15 Dexamethasone Sod Phos Inj 4 Mg/Ml Vial IV PUSH 06/11/20 09:01 6 mg DAILY FRANCES Administration Enoxaparin Sodium 40 mg 06/02/20 21:00 06/05/20 09:16 Enoxaparin 40 Mg/0.4 Ml Syringe SUB-Q 40 mg Q12HR FRANCES Administration Famotidine 20 mg 06/01/20 21:00 06/05/20 09:16 Famotidine 20 Mg/2 Ml Vial IV PUSH 20 mg Q12HR FRANCES Administration Guaifenesin/Dextromethorphan 10 ml 06/01/20 16:52 06/05/20 01:51 Guaifenesin/Dextromethorphan 10 Ml Udc PO 10 ml Q4H PRN Administration Cough Hydralazine HCl 10 mg 06/01/20 17:55 Hydralazine Hcl 20 Mg/Ml Vial IV PUSH Q8H PRN Blood Pressure - High Lisinopril 20 mg 06/01/20 18:00 06/05/20 09:
[2020-06-05 20:00] VITALS: BP 128/75; PULSE 88; RESP 20; TEMP 36.5; O2SAT 90
[2020-06-06] VITALS (7 sets, daily range): BP systolic 119–132; BP diastolic 76–97; PULSE 63–87; RESP 16–20; TEMP 36.7–37.1; O2SAT 90–93
[2020-06-06] MEDS: ALBUTEROL SULFATE (*SP) AEROSOL 1 PUFF 2 PUFF INHALATION ×4 (02:35→21:45)
[2020-06-06 06:45] LABS: Hematocrit 44.3 % (42.0-52.0); Hemoglobin 15.1 g/dL (14.0-18.0); Mean Corpuscular HGB Conc 34.1 g/dl (32-36); Mean Corpuscular Hemoglobin 29.9 pg (26-34); Mean Corpuscular Volume 87.7 fl (80-100); Mean Platelet Volume 10.2 fl (7.4-10.4); Platelet Count Result 348 k/mm3 (150-375); Red Blood Count 5.05 M/mm3 (4.6-6.20); Red Cell Distribution Width 13.1 % (11.5-14.5); White Blood Count 11.9 K/mm3 (4.5-10.0)
[2020-06-06 07:47] LABS: Anion Gap 4 mmol/L (8-16); Blood Urea Nitrogen 21 mg/dL (9-20); Calcium 8.3 mg/dL (8.4-10.2); Carbon Dioxide 29 mmol/L (22-30); Chloride 101 mmol/L (98-107); Estimated CRCL calculation 86 ml/min; Estimated Glomerular Filt Rate > 60; Glucose 100 mg/dL (75-110); Lactate Dehydrogenase 579 U/L (313-618); Magnesium 2.2 mg/dL (1.6-2.3); Potassium 4.1 mmol/L (3.4-5.0); Sodium 134 mmol/L (137-145)
[2020-06-06] MEDS: ENOXAPARIN 40 MG/0.4 ML SYRINGE SUB-Q ×2 (08:24→21:45)
[2020-06-06] MEDS: ASCORBIC ACID 500 MG TABLET PO (08:24)
[2020-06-06] MEDS: DEXAMETHASONE SOD PHOS INJ 4 MG/ML VIAL 6 MG IV PUSH (08:24)
[2020-06-06] MEDS: ROSUVASTATIN 5 MG TABLET PO (08:25)
[2020-06-06] MEDS: CHOLECALCIFEROL 1,000 UNITS TABLET 1000 UNITS PO (08:25)
[2020-06-06] MEDS: FAMOTIDINE 20 MG/2 ML VIAL IV PUSH ×2 (08:25→21:45)
[2020-06-06] MEDS: lisinopriL 20 MG TABLET PO (08:25)
[2020-06-06] MEDS: ZINC SULFATE 220 MG CAPSULE PO (08:25)
[2020-06-06] MEDS: guaiFENesin/DEXTROMETHORPHAN 10 ML UDC PO ×2 (08:26→21:46)
--- NOTE | 2020-06-06 10:49 | PCNFU ---
Nutrition Follow-Up Complete: Inadequate oral intake related to reduced appetite as evidence by unintended weight loss Goal: PO intake of 75% of meals to halt further weight loss Patient has met currently goal. No new goal. Pt current nutrition is Heart Healthy. Last recorded weight is 103 kg, down from 103.6 kg on admit. Bowel Motility:+BM noted 06/05 Labs Reviewed:BUN 21,Na 134 Meds Noted:Vit C, Zinc, Vit D Additional Notes: Nutrition follow up. Spoke with patient today, he stats to tolerating heart healthy diet. Oral Intake 75-100% of meals. He continues to receive Ensure Enlive BID providing an additional 350 kcals and 20 gms protein. Monitoring: PO intake, weight, labs every 7 days
--- NOTE | 2020-06-06 14:25 | PM.IMPN ---
Progress Note: A&P Assessment and Plan (1) Pneumonia due to 2019 novel coronavirus: Code(s): U07.1 - COVID-19; J12.89 - Other viral pneumonia Status: Acute Assessment and Plan: -tested positive 05/30/20 -he continues to utilize oxygen and is 92% on 2L. He is in the process of weaning -Will do home o2 eval for tomorrow -continue Decadron and Lovenox -patient has finished remdesevere -liver function normal -Continue supportive care with Tylenol for fevers, albuterol MDI, Robitussin, incentive spirometer, supplementation of Zinc, vitamins C and D. (2) Acute respiratory failure with hypoxia: Code(s): J96.01 - Acute respiratory failure with hypoxia Status: Acute Assessment and Plan: -Secondary to above. -continue oxygen supplementation -weaning trial and home o2 (3) HTN (hypertension): Qualifiers: Hypertension type: essential hypertension Qualified Code(s): I10 - Essential (primary) hypertension Code(s): I10 - Essential (primary) hypertension Status: Chronic Assessment and Plan: Last blood pressure 119/97 -continue lisinopril. (4) Dyslipidemia: Code(s): E78.5 - Hyperlipidemia, unspecified Status: Chronic Assessment and Plan: Continue statin therapy Subjective Date/time seen: 06/06/20 14:25 Interval history: Pt is a 69-year-old male here for COVID-19. Patient was seen today and states he is improving. He does not have any shortness of breath at rest or walking to the bathroom. He has some mild QUINN when he washes his hair or moves a lot. No significant cough. He denies weakness. He has no chest pain, diarrhea, fevers, chills, nausea or vomiting. Exam Narrative: Exam Narrative: General: Well developed well nourished patient in NAD HEENT: normocephalic Neck: supple Neuro: Alert and oriented x4 CV:RRR Resp:decreased breath sounds Abd: Soft, non distended. No pain to palpation. Positive bowel sounds Extremities: No swelling, erythema, or pain to palpation. Objective Data Vital Signs Vital Signs: Vital Signs - 24 hr 06/05/20 16:00 06/05/20 20:00 06/06/20 00:00 Temperature 98.5 F 97.7 F 98.7 F Pulse Rate 75 88 63 Respiratory Rate 18 20 20 Blood Pressure 134/83 128/75 128/88 Pulse Oximetry 90 90 92 06/06/20 04:00 06/06/20 08:00 06/06/20 12:00 Temperature 98.1 F 98.3 F 98.0 F Pulse Rate 72 68 87 Respiratory Rate 20 16 16 Blood Pressure 132/87 131/78 119/97 H Pulse Oximetry 93 92 92 Intake/Output Intake/Output: Intake & Output 06/03/20 06/04/20 06/05/20 06/06/20 23:59 23:59 23:59 23:59 Intake Total 0 2130 2990 760 Balance 0 2130 2990 760 Meds/Results Medications: Active Medications Generic Name Dose Route Start Last Admin Trade Name Freq PRN Reason Stop Dose Admin Acetaminophen 650 mg 06/02/20 15:49 Acetaminophen 325 Mg Tablet PO Q4H PRN Pain or Fever Albuterol 2 puff 06/01/20 20:00 06/06/20 08:25 Albuterol Sulfate (*Sp) Aerosol 1 Puff INHALATION 2 puff Q6HRT FRANCES Administration Ascorbic Acid 500 mg 06/02/20 09:20 06/06/20 08:24 Ascorbic Acid 500 Mg Tablet PO 500 mg DAILY FRANCES Administration Dexamethasone Sodium Phosphate 6 mg 06/02/20 09:00 06/06/20 08:24 Dexamethasone Sod Phos Inj 4 Mg/Ml Vial IV PUSH 06/11/20 09:01 6 mg DAILY FRANCES Administration Enoxaparin Sodium 40 mg 06/02/20 21:00 06/06/20 08:24 Enoxaparin 40 Mg/0.4 Ml Syringe SUB-Q 40 mg Q12HR FRANCES Administration Famotidine 20 mg 06/01/20 21:00 06/06/20 08:25 Famotidine 20 Mg/2 Ml Vial IV PUSH 20 mg Q12HR FRANCES Administration Guaifenesin/Dextromethorphan 10 ml 06/01/20 16:52 06/06/20 08:26 Guaifenesin/Dextromethorphan 10 Ml Udc PO 10 ml Q4H PRN Administration Cough Hydralazine HCl 10 mg 06/01/20 17:55 Hydralazine Hcl 20 Mg/Ml Vial IV PUSH Q8H PRN Blood Pressure - High Lisinopril 20 mg 06/01/20 18:00 1
[2020-06-07] VITALS (10 sets, daily range): BP systolic 95–148; BP diastolic 54–92; PULSE 64–94; RESP 18–20; TEMP 36.2–37.1; O2SAT 86–94
[2020-06-07] MEDS: guaiFENesin/DEXTROMETHORPHAN 10 ML UDC PO ×3 (06:35→21:13)
[2020-06-07] MEDS: ENOXAPARIN 40 MG/0.4 ML SYRINGE SUB-Q ×2 (08:09→20:55)
[2020-06-07] MEDS: CHOLECALCIFEROL 1,000 UNITS TABLET 1000 UNITS PO (08:10)
[2020-06-07] MEDS: lisinopriL 20 MG TABLET PO (08:10)
[2020-06-07] MEDS: ASCORBIC ACID 500 MG TABLET PO (08:10)
[2020-06-07] MEDS: ALBUTEROL SULFATE (*SP) AEROSOL 1 PUFF 2 PUFF INHALATION ×3 (08:10→20:56)
[2020-06-07] MEDS: ZINC SULFATE 220 MG CAPSULE PO (08:10)
[2020-06-07] MEDS: ROSUVASTATIN 5 MG TABLET PO (08:10)
[2020-06-07] MEDS: FAMOTIDINE 20 MG/2 ML VIAL IV PUSH ×2 (08:10→20:55)
[2020-06-07] MEDS: DEXAMETHASONE SOD PHOS INJ 4 MG/ML VIAL 6 MG IV PUSH (08:13)
--- NOTE | 2020-06-07 10:23 | PM.IMPN ---
Progress Note: A&P Assessment and Plan (1) Pneumonia due to 2019 novel coronavirus: Code(s): U07.1 - COVID-19; J12.89 - Other viral pneumonia Status: Acute Assessment and Plan: -tested positive 05/30/20 -he continues to utilize oxygen and had to be placed back on oxygen a 1 L after failing oxygen weaning -I spoke with him about possibly going home on oxygen as he only needs a little amount and appears to be stable within improving chest x-ray -Will reschedule home o2 eval for tomorrow -continue Decadron and Lovenox -patient has finished Remdesivir -liver function normal -Continue supportive care with Tylenol for fevers, albuterol MDI, Robitussin, incentive spirometer, supplementation of Zinc, vitamins C and D. (2) Acute respiratory failure with hypoxia: Code(s): J96.01 - Acute respiratory failure with hypoxia Status: Acute Assessment and Plan: -Secondary to above. -continue oxygen supplementation -home oxygen evaluation tomorrow (3) HTN (hypertension): Qualifiers: Hypertension type: essential hypertension Qualified Code(s): I10 - Essential (primary) hypertension Code(s): I10 - Essential (primary) hypertension Status: Chronic Assessment and Plan: Last blood pressure 134/92 -continue lisinopril. (4) Dyslipidemia: Code(s): E78.5 - Hyperlipidemia, unspecified Status: Chronic Assessment and Plan: Continue statin therapy Subjective Date/time seen: 06/07/20 10:23 Interval history: Pt is a 69-year-old male here for COVID-19. Patient was seen today and feels a little discouraged after having to get back on oxygen with the weaning trial. He did not feel short of breath he was found to be at 86% on room air. He states he feels like he is improving and is able to do more more things. He is walking to and from the bathroom. His cough is minimal. He denies weakness. He has no chest pain, diarrhea, fevers, chills, nausea or vomiting. Exam Narrative: Exam Narrative: General: Well developed well nourished patient in NAD HEENT: normocephalic Neck: supple Neuro: Alert and oriented x4 CV:RRR Resp:decreased breath sounds but good air movement Abd: Soft, non distended. No pain to palpation. Positive bowel sounds Extremities: No swelling, erythema, or pain to palpation. Objective Data Vital Signs Vital Signs: Vital Signs - 24 hr 06/06/20 12:00 06/06/20 16:00 06/06/20 20:00 Temperature 98.0 F 98.2 F 98.6 F Pulse Rate 87 72 81 Respiratory Rate 16 18 18 Blood Pressure 119/97 H 132/81 126/76 Pulse Oximetry 92 91 90 06/07/20 00:00 06/07/20 04:00 06/07/20 08:00 Temperature 98.7 F 98.1 F 98.1 F Pulse Rate 66 64 65 Respiratory Rate 18 18 18 Blood Pressure 148/84 H 143/89 H 134/92 H Pulse Oximetry 91 93 93 06/07/20 09:00 06/07/20 09:11 Temperature Pulse Rate Respiratory Rate Blood Pressure Pulse Oximetry 86 L 91 Intake/Output Intake/Output: Intake & Output 06/04/20 06/05/20 06/06/20 06/07/20 23:59 23:59 23:59 23:59 Intake Total 2130 2990 2820 440 Balance 2130 2990 2820 440 Meds/Results Medications: Active Medications Generic Name Dose Route Start Last Admin Trade Name Freq PRN Reason Stop Dose Admin Acetaminophen 650 mg 06/02/20 15:49 Acetaminophen 325 Mg Tablet PO Q4H PRN Pain or Fever Albuterol 2 puff 06/01/20 20:00 06/07/20 08:10 Albuterol Sulfate (*Sp) Aerosol 1 Puff INHALATION 2 puff Q6HRT FRANCES Administration Ascorbic Acid 500 mg 06/02/20 09:20 06/07/20 08:10 Ascorbic Acid 500 Mg Tablet PO 500 mg DAILY FRANCES Administration Dexamethasone Sodium Phosphate 6 mg 06/02/20 09:00 06/07/20 08:13 Dexamethasone Sod Phos Inj 4 Mg/Ml Vial IV PUSH 06/11/20 09:01 6 mg DAILY FRANCES Administration Enoxaparin Sodium 40 mg 06/02/20 21:00 06/07/20 08:09 Enoxaparin 40 Mg/0.4 Ml Syringe SUB-Q 40 mg Q12HR FRANCES Administration Famotid
[2020-06-08] VITALS (7 sets, daily range): BP systolic 96–117; BP diastolic 73–83; PULSE 54–110; RESP 18; TEMP 36.3–36.8; O2SAT 87–96
[2020-06-08] MEDS: guaiFENesin/DEXTROMETHORPHAN 10 ML UDC PO (01:24)
[2020-06-08] MEDS: polyethylene glycoL 3350 17 GM POWD.PACK PO (01:24)
[2020-06-08] MEDS: ALBUTEROL SULFATE (*SP) AEROSOL 1 PUFF 2 PUFF INHALATION ×2 (01:29→09:03)
[2020-06-08 06:52] LABS: Alanine Aminotransferase 36 U/L (4-50); Albumin Level 3.1 g/dL (3.5-5.1); Alkaline Phosphatase 69 U/L (38-126); Anion Gap 7 mmol/L (8-16); Aspartate Amino Transferase 25 U/L (17-59); Bilirubin,Total 0.9 mg/dL (0.2-1.3); Blood Urea Nitrogen 28 mg/dL (9-20); CRP 0.7 mg/dL (<1.0); Calcium 8.6 mg/dL (8.4-10.2); Carbon Dioxide 29 mmol/L (22-30); Chloride 98 mmol/L (98-107); Estimated CRCL calculation 77 ml/min; Estimated Glomerular Filt Rate > 60; Glucose 91 mg/dL (75-110); Potassium 4.6 mmol/L (3.4-5.0); Sodium 134 mmol/L (137-145)
[2020-06-08] MEDS: ENOXAPARIN 40 MG/0.4 ML SYRINGE SUB-Q (09:03)
[2020-06-08] MEDS: FAMOTIDINE 20 MG/2 ML VIAL IV PUSH (09:04)
[2020-06-08] MEDS: DEXAMETHASONE SOD PHOS INJ 4 MG/ML VIAL 6 MG IV PUSH (09:04)
[2020-06-08] MEDS: CHOLECALCIFEROL 1,000 UNITS TABLET 1000 UNITS PO (09:04)
[2020-06-08] MEDS: ASCORBIC ACID 500 MG TABLET PO (09:04)
[2020-06-08] MEDS: ROSUVASTATIN 5 MG TABLET PO (09:05)
[2020-06-08] MEDS: lisinopriL 20 MG TABLET PO (09:05)
[2020-06-08] MEDS: ZINC SULFATE 220 MG CAPSULE PO (09:05)
--- NOTE | 2020-06-08 12:10 | PM.DS ---
DS: Admitting Diagnosis Admitting Diagnosis Admitting Diagnosis: COVID-19 pneumonia DS: Discharge Diagnosis Discharge Diagnosis (1) Pneumonia due to 2019 novel coronavirus: Code(s): U07.1 - COVID-19; J12.89 - Other viral pneumonia Status: Acute Assessment and Plan: -tested positive 05/30/20 -Patient finish Remdesivir during his stay -he received Decadron and Lovenox around his stay as well -he still requires 1 L of oxygen with activity but feels much better and is ready for discharge. He will be discharged on albuterol and dexamethasone -follow-up with primary care physician 1-2 weeks -educated on quarantine in guidelines (2) Acute respiratory failure with hypoxia: Code(s): J96.01 - Acute respiratory failure with hypoxia Status: Acute Assessment and Plan: -Secondary to above. -will need 1 L of oxygen at home with activity (3) HTN (hypertension): Qualifiers: Hypertension type: essential hypertension Qualified Code(s): I10 - Essential (primary) hypertension Code(s): I10 - Essential (primary) hypertension Status: Chronic Assessment and Plan: Last blood pressure 115/73 -continue lisinopril. (4) Dyslipidemia: Code(s): E78.5 - Hyperlipidemia, unspecified Status: Chronic Assessment and Plan: Continue statin therapy DS: Summary Hospital Course Reason for hospitalization: COVID-19 Hospital Course: Patient is a 69-year-old male with a history of COVID-19 who presented to emergency room for shortness of breath and weakness as well as dehydration. Vitals in the ER were temperature 98.8?, pulse 110, respiratory rate 22, blood pressure 120/81, pulse ox 89 on room air. CBC within normal limits. BMP showed slight hyponatremia at 131 and hypochloridemia at 97. Chest x-ray showed worsened diffuse lung disease consistent with pneumonia. Patient was Admitted to the hospitalist service and was placed on oxygen, Remdesivir, Decadron and Lovenox. The patient did well with this treatment and improved by the day. He was able to be weaned off oxygen at rest but still required 1 L of oxygen with activity. The patient did well throughout his stay and did not any chest pain or complications. He was eager for discharge. He had a home oxygen evaluation which showed that he required 1 L of oxygen with activity and he was educated about oxygen use. He is going to follow-up with his primary care physician in 1 week about this stay. He was educated about the worrisome signs and symptoms to come back to emergency room for and was discharged in stable condition. Status at Discharge Functional status at discharge: independent ambulation Overall status at discharge: patient is progressing back to baseline Time Spent with Patient Time attestation: Total time spent providing and/or coordinating discharge services:36 min Exam Narrative: Exam Narrative: General: Well developed well nourished patient in NAD HEENT: normocephalic Neck: supple Neuro: Alert and oriented x4 CV:RRR Resp:decreased breath sounds but good air movement Abd: Soft, non distended. No pain to palpation. Positive bowel sounds Extremities: No swelling, erythema, or pain to palpation. DS: Data Data Completed and Pending Labs on day of discharge: Labs from last 24 hours 06/08/20 06:00 Sodium 134 L Potassium 4.6 Chloride 98 Carbon Dioxide 29 Anion Gap 7 L BUN 28 H Creatinine 0.90 Estim Creat Clear Calc 77 Estimated GFR > 60 Glucose 91 Calcium 8.6 Total Bilirubin 0.9 Direct Bilirubin 0.0 AST 25 ALT 36 Alkaline Phosphatase 69 C-Reactive Protein 0.7 Total Protein 6.0 L Albumin 3.1 L Discharge Plan Discharge Attending physician on discharge: Sami Mauro Consulting providers: Jose De Jesus Serra Discharging Clinician: Kirsten Dyson Patient Disposition: Home, Self-Care Activity: as tolerated Diet: regular
--- NOTE | 2020-06-08 14:41 | PCRCNOTE ---
Pt requires 1L O2 with exertion, and 1L prn O2 at rest
--- NOTE | 2020-06-08 14:44 | HOMEO2EVAL ---
Home Oxygen Evaluation RC: Home Oxygen (O2) Evaluation Start: 06/08/20 09:00 Freq: ONCE Status: Active Protocol: RPE Activity Type Activity Date Activity User E-Sign Co-Sign Detail Recorded Client Recorded Date Recorded By Document 06/08/20 12:30 TJT [email or web address] 06/08/20 14:32 TJT Document 06/08/20 12:35 TJT [email or web address] 06/08/20 14:35 TJT Document 06/08/20 12:40 TJT [email or web address] 06/08/20 14:36 TJT Document 06/08/20 12:45 TJT [email or web address] 06/08/20 14:38 TJT 06/08/20 06/08/20 06/08/20 12:30 12:35 12:40 Home O2 Evaluation Test Phase Resting Exercise Resting Oxygen Delivery Room Air Room Air Nasal Cannula Oxygen Flow Rate (L/min) 1 Fraction of Inspired Oxygen (%) 21 21 24 Pulse Oximetry (90-100 %) 91 87 L 93 Pulse Rate (60-100 beats/min) 84 110 H 94 Activity Tolerance Fair Good Rating of Perceived Dyspnea (PD) +2 Mild, Some Difficulty, Noticeable to the Observer Ambulation Distance (feet) 80 Treatment Charges O2 Evaluation 06/08/20 12:45 Home O2 Evaluation Test Phase Exercise Oxygen Delivery Nasal Cannula Oxygen Flow Rate (L/min) 1 Fraction of Inspired Oxygen (%) 24 Pulse Oximetry (90-100 %) 92 Pulse Rate (60-100 beats/min) 98 Activity Tolerance Good Rating of Perceived Dyspnea (PD) Ambulation Distance (feet) 80 Treatment Charges
== END 2020-06-08 16:09 | disposition home or self-care (01) | DRG 177 ==
LOC: ANHED 14:29 → ANH3MEDSUR 16:03
PROVIDERS: Emergency Medicine Emergency Medical Services; Nurse Practitioner; Physician Assistant; Admitting Provider Internal Medicine; Emergency Provider General Practice; PCP Internal Medicine; Visit Provider Physician Assistant
DX: U07.1 COVID-19 (principal); J12.89 Other viral pneumonia; J96.01 Acute respiratory failure with hypoxia; E78.5 Hyperlipidemia, unspecified; E86.0 Dehydration
CPT/HCPCS: 36415; 36600; 71045; 71275; 80048; 80053; 80076; 82375; 82728; 82805; 83050; 83605; 83615; 83735; 84460; 84484; 85025; 85027; 85380; 85610; 85730; 86140; 87040; 93005; 94618; 94640; 96361; 96365; 96366; 96372; 96375; 96376; 99285; A9270; G0378; J1100; J1650; J7120; Q9967

== ENCOUNTER 2020-06-29 12:35 | Inpatient (IN) | payer MEDICARE, SELFPAY ==
[2020-06-29] VITALS (15 sets, daily range): BP systolic 116–140; BP diastolic 71–106; PULSE 75–117; RESP 18–26; TEMP 36.1–37.2; O2SAT 88–97; BMI 34.7
--- NOTE | ~2020-06-29 | XR_ITS ---
XR chest 1V portable 06/29/2020 13:08 Indication: Shortness of breath. Recent Covid Procedure: AP portable chest Comparison: 06/06/2020 Findings: There is extensive bilateral airspace disease. No significant effusion or pneumothorax. Low lung volumes. No acute osseous abnormality. Impression: 1: Extensive bilateral airspace disease which has progressed since prior study, pneumonia versus tristan a. Reviewed, dictated and finalized at location A. O ANNOUNCER Impression: 1: Extensive bilateral airspace disease which has progressed since prior study, pneumonia versus edema.
--- NOTE | ~2020-06-29 | CT_ITS ---
EXAMINATION: CTA chest PE protocol DATE: 06/29/2020 14:39 LOCOMOTIVE INSPECTOR INDICATION: Shortness of breath. Covid. TECHNIQUE: Computed tomographic angiography (CTA) of the chest was performed with 100 mL Omnipaque-35 0 intravenous contrast. The dose-length product was 802.72 mGy-cm. Maximum intensity projection 3D-re constructions of the aorta and other arteries were constructed by the technologist on a separate work station. Automated exposure control and iterative reconstruction technique were employed. COMPARISON: CT dated 06/01/2020. FINDINGS: This is study is limited by motion artifact. There are small filling defects in the lower l obe segmental and subsegmental pulmonary arteries, consistent with pulmonary embolism, small thrombus burden. Mild mediastinal lymphadenopathy, likely reactive. No evidence for aortic aneurysm or dissec tion. Heart size normal. Small pleural effusions. Extensive patchy bilateral groundglass opacities throughout both lungs, most likely pneumonia. Edema less favored. No endobronchial lesions. No pneumothorax. IMPRESSION: 1. Small filling defects involving bilateral lower lobe segmental and subsegmental pulmonary arteries consistent with pulmonary embolism, small thrombus burden. 2: Extensive patchy groundglass consolidation throughout both lungs, most likely pneumonia. 3: Small pleural effusions. Reviewed, dictated and finalized at location A. MOTIVE INSPECTOR IMPRESSION: 1. Small filling defects involving bilateral lower lobe segmental and subsegmen isadora pulmonary arteries consistent with pulmonary embolism, small thrombus burde n. 2: Extensive patchy groundglass consolidation throughout both lungs, most like ly pneumonia. 3: Small pleural effusions.
--- NOTE | ~2020-06-29 | US_ITS ---
EXAMINATION:US venous doppler LE BI INDICATION:Pulmonary embolism TECHNIQUE: Multiple grayscale, color flow and Doppler images of the right and left lower extremity de ep venous systems were obtained and reviewed. COMPARISON:No prior studies for comparison. FINDINGS: The common femoral, superficial femoral and popliteal veins demonstrate normal respiratory variation, augmentation and compressibility. Color flow is also seen within the posterior tibial, pe roneal, greater saphenous and profunda veins. IMPRESSION: 1: No lower extremity deep venous thrombosis. Reviewed, dictated and finalized at location A. CE ADMINISTRATION
--- NOTE | 2020-06-29 12:45 | ECG_ITS ---
Measurements Intervals [place] Rate: 118 P: 17 UT: 164 QRS: -33 QRSD: 94 T: 15 QT: 357 QTc: 502 Interpretive Statements SINUS TACHYCARDIA VENTRICULAR PREMATURE COMPLEXES POSSIBLE LEFT ATRIAL ENLARGEMENT LEFT AXIS DEVIATION POOR R WAVE PROGRESSION, ANTERIOR LEADS BORDERLINE T WAVE ABNORMALITY- INFERIOR LEADS ABNORMAL ECG Electronically Signed On 06-29-2020 15:16:10 FOOD SERVICE CLERK by Joshua Gray D.O.
--- NOTE | 2020-06-29 12:46 | ED.GENADULT ---
HPI - General Adult General Chief complaint: Shortness of Breath/Dyspnea Stated complaint: ongoing cough, history COVID pneumonia Time Seen by Provider: 06/29/20 12:38 Source: patient, RN notes reviewed and old records reviewed History of Present Illness HPI narrative: Patient is a 69-year-old male presents to emergency department for shortness of breath and cough for the past 3 days. Patient was diagnosed with COVID-19 last month, and states that he recovered. He states he has a pulse ox at home, which has been showing in the 80s today. He does report some weakness. No chest pain. No abdominal pain. No nausea or vomiting. No fever or chills. Related Data Allergies Allergy/AdvReac Type Severity Reaction Status Date / Time No Known Allergies Allergy Verified 06/29/20 12:40 Review of Systems Review of Systems: Narrative: CONSTITUTIONAL: Denies fever, chills, or sweats. EYES: Denies visual changes, redness, or discharge. ENT: Denies rhinorrhea, congestion, sore throat, or otalgia. CARDIOVASCULAR: Denies chest pain, palpitations, or edema. RESPIRATORY: Denies cough or dyspnea. GASTROINTESTINAL: Denies abdominal pain, nausea, vomiting, or diarrhea. GENITOURINARY: Denies dysuria or hematuria. SKIN: Denies rash or itching. MUSCULOSKELETAL: Denies back pain, joint pain, or myalgia. NEUROLOGIC: Denies headache, numbness, dizziness, or weakness. PSYCHIATRIC: Denies anxiety or depression. All systems reviewed & are unremarkable except as noted in HPI and below (ROS) [facility] Past Medical History Medical History Dyslipidemia HTN (hypertension) Surgical History Surgical History H/O thumb surgery both thumbs H/O umbilical hernia repair 2010 H/O: knee surgery History of cataract surgery History of removal of pigmented skin lesion Previous back surgery rods placed S/P tonsillectomy and adenoidectomy Family History Family History Father Hypertension Family history of seizure disorder Mother Cerebrovascular accident Social History Social History Social History: The patient is and lives with his . His is the durable power prosecuting attorney for healthcare. The patient has 3 children. The patient desires to be a full code. Patient is a lifelong nonsmoker. No alcohol marijuana or illicit drugs. 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 Smoking status: Never smoker Second hand tobacco smoke exposure: No Alcohol intake: never Substance use: never Gender identity (if verbalized by the patient): Male Sexual Orientation (if Verbalized by the Patient): Straight or Heterosexual Spiritual care concerns: No Exam Narrative: Exam Narrative: GENERAL: Well-appearing, well-nourished, and in no acute distress. HEAD: Normocephalic, atraumatic. EYES: PERRLA and EOMI. ENT: Nares clear, no rhinorrhea or epistaxis. Mucous membranes moist. NECK: Supple. CHEST: Clear to auscultation. No respiratory distress. HEART: Tachycardia. No murmur heard. Normal peripheral pulses. ABDOMEN: Soft, nontender, nondistended, normal active bowel sounds. EXTREMITIES: Normal range of motion. No edema. SKIN: Warm, dry, no rash. NEURO: No focal deficits. Alert and oriented x3. PSYCH: Normal mood and affect. Course Reevaluation(s) Reevaluation #1: 1450 -reevaluated patient, no new complaints. 1500 -discussed case with Ese IVAN, accepts admission for hospitalist. Vital Signs Vital signs: Vital Signs Temperature 37.0 C 06/29/20 12:40 Pulse Rate 117 H 06/29/20 12:40 Respiratory Rate 24 H 06/29/20 12:40 Blood Pressure 128/106 H 06/29/20 12:40 Pulse Oximetry 88 L 06/29/20 12:40 Temperature 37.0 C 06/29/20 12:40 Pulse Rate 88 06/29/20 16:14 Respiratory Rate 18 01
[2020-06-29 13:02] LABS: Basophils Absolute Auto 0.1 K/mm3 (0.0-0.1); Basophils Percent Auto 1.4 % (0.2-1.2); Eosinophils Percent Auto 10.6 % (0-4.4); Hematocrit 42.7 % (42.0-52.0); Hemoglobin 14.4 g/dL (14.0-18.0); Immature Granulocyte Absolute 0.07 K/mm3 (0.00-0.031); Immature Granulocyte Percent A 0.7 % (0-0.5); Lymphocytes Absolute Auto 1.34 K/mm3 (0.9-3.2); Mean Corpuscular HGB Conc 33.7 g/dl (32-36); Mean Platelet Volume 9.4 fl (7.4-10.4); Monocytes Absolute Auto 1.2 K/mm3 (0.1-0.6); Monocytes Percent Auto 12.2 % (2.6-8.5); Neutrophils Absolute Auto 5.9 K/mm3 (1.3-6.7); Neutrophils Percent Auto 61.1 % (45.5-73.1); Platelet Count Result 428 k/mm3 (150-375); Red Cell Distribution Width 14.4 % (11.5-14.5); White Blood Count 9.6 K/mm3 (4.5-10.0)
[2020-06-29 13:02] LABS: Alveolar/Arterial O2 Gradient 54.4 mmHg; Base Excess ABG -0.4 mEq/l (+/-2.0); Fractional Inspired Oxygen 21 %; HCO3 ABG 22.4 mEq/l (22.0-26.0); Oxygen Content ABG 18.4 %vol (16.0-22.0); Oxygen Saturation ABG 91.6 % (95.0-100.0); Oxyhemoglobin 89.7 % THb (90.0-100.0); PCO2 ABG 31.9 mmHg (35.0-45.0); PO2 ABG 57.1 mmHg (80.0-100.0); PO2 FiO2 Ratio Arterial Blood 2.72 %; Total Hemoglobin 14.6 g/dL (12.0-18.0); pH ABG 7.465 (7.350-7.450)
[2020-06-29 13:03] LABS: Device ROOM AIR; Modified Allen's Test Pass; Site Drawn LEFT RADIAL
[2020-06-29 13:14] LABS: D Dimer 0.85 ug/mL (<0.48)
[2020-06-29 13:16] LABS: Alanine Aminotransferase 19 U/L (4-50); Albumin Level 3.7 g/dL (3.5-5.1); Alkaline Phosphatase 104 U/L (38-126); Anion Gap 6 mmol/L (8-16); Aspartate Amino Transferase 33 U/L (17-59); Bilirubin,Total 0.9 mg/dL (0.2-1.3); Blood Urea Nitrogen 13 mg/dL (9-20); Calcium 8.9 mg/dL (8.4-10.2); Carbon Dioxide 23 mmol/L (22-30); Chloride 106 mmol/L (98-107); Estimated CRCL calculation 74 ml/min; Estimated Glomerular Filt Rate > 60; Glucose 104 mg/dL (75-110); Sodium 135 mmol/L (137-145)
[2020-06-29 13:28] LABS: NT Pro B Type Natriuretic Pept 80 PG/ML (5-100); Troponin I < 0.012 ng/mL (0.000-0.034)
--- NOTE | 2020-06-29 14:55 | PC.NURSE ---
Called lab to add on pt inr ptt
[2020-06-29 15:02] LABS: Prothrombin Time 14.1 Seconds (11.1-14.7)
[2020-06-29 15:03] LABS: Partial Thromboplastin Time 33.9 SECONDS (22.3-36.8)
[2020-06-29] MEDS: HEPARIN SODIUM 5,000 UNITS/ML VIAL 6500 UNITS IV PUSH (15:14)
[2020-06-29] MEDS: HEPARIN SOD/D5W 100 UNITS/ML 25,000 UNITS/250 ML BAG 14 UNITS IV CONT (15:18)
--- NOTE | 2020-06-29 17:08 | ADMGEN ---
This patient, Jemal Roa, was admitted to IMU Room 201-01. Patient/family oriented to hospital policies and general routines including ID bracelet, bed and alarms, visiting hours, pain management, procedures, bathroom and other care routines, personal items, smoking policy, room service/diet, and visiting hours. Information on how to activate the Rapid Response Team has been discussed. Patient/Family are encouraged to report perceived risks to care and to ask questions if they do not understand what they are told or what they should do.
[2020-06-29 21:28] LABS: Partial Thromboplastin Time 101.4 SECONDS (22.3-36.8)
--- NOTE | 2020-06-29 22:08 | PM.IMHP ---
H&P: HPI History of Present Illness Date/Time: 06/29/20 22:08 Chief Complaint: shortness of breath Narrative: Jemal Roa is a 69 year old male Who I saw on 06/01/2020 for COVID-19. The patient was diagnosed with COVID on the 30 of May. The patient did receive receive oxygen at that time and he also got remdesivir and Decadron. The patient had been on subcu Lovenox while he was admitted to the hospital. The patient did have CT a pulmonary which was negative for PE at that time. The patient had finished the antiviral during his day patient was discharged on albuterol and dexamethasone. Patient was requiring oxygen at 1 L per nasal cannula at home with activity. Today the patient came to the emergency department for shortness of breath and a cough for the last 3 days. The patient stated that his shortness of breath began all of a sudden. The patient stated that he was monitoring his oxygen level at home and his oxygen level dropped down the 85-87% today. The patient reports some weakness but no chest pain. The patient was concerned about the increased shortness of breath. The patient CTA today was read by radiologist as small filling deficits involving bilateral lower lobe segmental and subsegmental pulmonary arteries consistent with pulmonary embolism small thrombus burden. Extensive patchy ground-glass consolidation throughout both lungs most likely pneumonia. Small pleural effusions. The patient had been started on a heparin drip. The patient is requiring oxygen at 3 L per nasal cannula. ABGs pH 7.465. CO2 31.9. Patient was admitted to in patient status for date of service 06/29/2020. Review of Systems Review of Systems: All systems reviewed & are unremarkable except as noted in HPI and below Constitutional: Constitutional: Reports as per HPI and Reports no additional constitutional complaints Eyes: Eyes: Reports as per HPI and Reports no additional eye complaints ENT: Reports system reviewed and no additional complaints, except as documented and Reports Normal hearing present Cardiovascular: Cardiovascular: Reports no additional cardiovascular complaints Respiratory: Respiratory: Reports no additional respiratory complaints and Reports no additional respiratory complaints Gastrointestinal: Gastrointestinal: Reports as per HPI and Reports no additional gastrointestinal complaints Musculoskeletal: Musculoskeletal: Reports no additional musculoskeletal complaints Integumentary/Breasts: Skin/Breast: Reports system reviewed and no additional complaints, except as docu and Reports as per HPI Neurologic: Reports system reviewed and no additional complaints, except as documented, Reports as per HPI and Reports Normal hearing present Psychiatric: Psychiatric: Reports no additional psychiatric complaints and Reports as per HPI Endocrine: Endocrine: Reports no additional endocrine complaints Hematologic/Lymphatic: Hematologic/Lymphatic: Reports no additional hematologic/lymphatic complaints Allergic/Immunologic: Allergic/Immunologic: Reports no additional allergic/immunologic complaints [facility] Past Medical History Medical History Dyslipidemia HTN (hypertension) Surgical History Surgical History H/O thumb surgery both thumbs H/O umbilical hernia repair 2010 H/O: knee surgery History of cataract surgery History of removal of pigmented skin lesion Previous back surgery rods placed S/P tonsillectomy and adenoidectomy Family History Family History (Updated 06/29/20 @ 22:18 by Ese Michele NP) Father Hypertension Family history of seizure disorder Mother Brain aneurysm Social History Social History Social History: The patient is and lives with his . His is the durable power admitted attorneys for healthcare. The patient has 3
[2020-06-30] VITALS (12 sets, daily range): BP systolic 113–134; BP diastolic 68–80; PULSE 51–91; RESP 14–20; TEMP 36.1–37.1; O2SAT 91–96
[2020-06-30] MEDS: ENOXAPARIN 100 MG/ML SYRINGE 98 MG SUB-Q ×2 (00:48→11:38)
[2020-06-30 05:07] LABS: Basophils Absolute Auto 0.2 K/mm3 (0.0-0.1); Basophils Percent Auto 1.5 % (0.2-1.2); Eosinophils Percent Auto 10.5 % (0-4.4); Hematocrit 42.8 % (42.0-52.0); Hemoglobin 14.2 g/dL (14.0-18.0); Immature Granulocyte Absolute 0.12 K/mm3 (0.00-0.031); Immature Granulocyte Percent A 1.2 % (0-0.5); Lymphocytes Absolute Auto 1.39 K/mm3 (0.9-3.2); Lymphocytes Percent Auto 14.3 % (18.3-44.2); Mean Corpuscular HGB Conc 33.2 g/dl (32-36); Mean Corpuscular Hemoglobin 29.9 pg (26-34); Mean Corpuscular Volume 90.1 fl (80-100); Mean Platelet Volume 9.7 fl (7.4-10.4); Monocytes Absolute Auto 1.3 K/mm3 (0.1-0.6); Monocytes Percent Auto 13.6 % (2.6-8.5); Neutrophils Absolute Auto 5.7 K/mm3 (1.3-6.7); Neutrophils Percent Auto 58.9 % (45.5-73.1); Platelet Count Result 396 k/mm3 (150-375); Red Blood Count 4.75 M/mm3 (4.6-6.20); Red Cell Distribution Width 14.4 % (11.5-14.5); White Blood Count 9.8 K/mm3 (4.5-10.0)
[2020-06-30 05:23] LABS: Magnesium 1.9 mg/dL (1.6-2.3)
[2020-06-30] MEDS: lisinopriL 20 MG TABLET PO (08:01)
[2020-06-30] MEDS: ROSUVASTATIN 5 MG TABLET PO (08:01)
--- NOTE | 2020-06-30 14:31 | PM.IMPN ---
Progress Note: A&P Assessment and Plan (1) Pulmonary emboli: Qualifiers: Acute cor pulmonale presence: without acute cor pulmonale Chronicity: acute Pulmonary embolism type: unspecified Qualified Code(s): I26.99 - Other pulmonary embolism without acute cor pulmonale Code(s): I26.99 - Other pulmonary embolism without acute cor pulmonale Status: Acute Assessment and Plan: heparin drip was stopped and he was started on lovenox . To be started one hour after the heparin was stopped . may consider. Eliquis or xarelto. I explained that he may be on it for 3-6 months. 06/30/20 14:31 Patient is 69-year-old male who was diagnosed with a COVID-19 May 30 he was treated with remdesivir and Decadron. and discharged home on 06/08/20 however patient presented with shortness of breath he was desaturating to further evaluate patient had a CTA scan of the chest which showed patient has a pulmonary emboli patient initially started on heparin drip and switch over Lovenox patient also had a lower extremity Doppler is negative for DVT, patient states feeling little better compared to when he arrived still complains of shortness of breath, but denies any fever or chills currently patient is requiring 2 L of oxygen to further evaluate will do cardiac echo, will discuss with care trainer and switch over patient to is Eliquis or Xarelto tomorrow and further recommendation to follow. (2) History of COVID-19: Code(s): Z86.16 - Personal history of COVID-19 Status: Acute Assessment and Plan: the patient had a full treatment of remdesivir and decadron When he was admitted here last night. The patient had gone home with oxygen at 1 L per nasal cannula to be used on exertion. The patient is currently on 3 L per nasal cannula. The patient asked if he needed to get off of oxygen before he went home and at the time I did not realize that he has home oxygen. I did explain that we would take it day by day and see how he feels. (3) Dyslipidemia: Code(s): E78.5 - Hyperlipidemia, unspecified Status: Chronic Assessment and Plan: Continue with Crestor. (4) HTN (hypertension): Qualifiers: Hypertension type: essential hypertension Qualified Code(s): I10 - Essential (primary) hypertension Code(s): I10 - Essential (primary) hypertension Status: Chronic Assessment and Plan: Continue with lisinopril Subjective Date/time seen: 06/30/20 14:31 Patient is 69-year-old male who was diagnosed with a COVID-May 30 he was treated with remdesivir and Decadron. and discharged home on 06/08/20 however patient presented with shortness of breath he was desaturating to further evaluate patient had a CTA scan of the chest which showed patient has a pulmonary emboli patient initially started on heparin drip and switch over Lovenox patient also had a lower extremity Doppler is negative for DVT, patient states feeling little better compared to when he arrived still complains of shortness of breath, but denies any fever or chills currently patient is requiring 2 L of oxygen to further evaluate will do cardiac echo, will discuss with care trainer and switch over patient to is Eliquis or Xarelto tomorrow and further recommendation to follow. Review of Systems Review of Systems: All systems reviewed & are unremarkable except as noted in HPI and below Exam Narrative: Exam Narrative: Moderately obese Patient is comfortable, NAD HEENT: eyes are clear and none icteric LUNGS: Bilateral fair air entry with rhonchi HEART: RR S1S2 ABD: BS+, Soft and nontender Lower extremities: no edema SKIN: nonjaundiced Neuro: grossly intact. Objective Data Vital Signs Vital Signs: Vital Signs - 24 hr 06/29/20 14:35 06/29/20 14:38 06/29/20 14:54 Temperature Pulse Rate 90 90 89 Respiratory Rate 26 H 24 H Blood Pressure 137/71 137/89 Pulse Oximetry 95 95 06/29/20 15:14
[2020-06-30] MEDS: guaiFENesin 12 HR 600 MG TABCR PO ×2 (15:11→20:49)
[2020-06-30] MEDS: BENZONATATE 100 MG CAPSULE PO (20:49)
[2020-07-01] VITALS (14 sets, daily range): BP systolic 112–123; BP diastolic 76–83; PULSE 60–96; RESP 18–22; TEMP 36–37.1; O2SAT 91–96; BMI 34.9
--- NOTE | 2020-07-01 | ECHO_ITS ---
Patient Info Name: Jemal Roa Age: 69 years : 1950 Gender: Male Ht: 66 in Wt: 216 lbs BSA: 2.18 m2 HR: 84 bpm BP: 112 / 76 mmHg Technical Quality: Good Exam Date: 07/01/2020 10:26 AM Exam Location: [facility] Patient Status: Inpatient Admit Date: 06/29/2020 Staff Ordering Physician: Ese Michele NP Geophysical Manager: Boone Solano RDCS, RT Attending Provider: Casey Stovall M.A., MD Referring Physician: Leny LONGO; Exam Type: CA echo doppler color flow Study Info Indications I26.99 - Other pulmonary embolism without acute cor pulmonale Complete two-dimensional, color flow and Doppler transthoracic echocardiogram is performed. Strain analysis performed. Summary 1. Complete two-dimensional, color flow and Doppler transthoracic echocardiogram is performed. 2. Left ventricular chamber dimension is normal. 3. Left ventricular systolic function is normal, estimated at 55-60%. 4. There is mildly increased left ventricular wall thickness. 5. The left ventricular diastolic function is grade I diastolic dysfunction. 6. Global longitudinal strain is abnormal at -12.9%. 7. E/e' 4 is not elevated. 8. No pulmonary hypertension, estimated pulmonary arterial systolic pressure is 32 mmHg. Left Ventricle Global longitudinal strain is abnormal at -12.9%. E/e' 4 is not elevated. Left ventricular chamber dimension is normal. Left ventricular systolic function is normal, estimated at 55-60%. There is mildly increased left ventricular wall thickness. The left ventricular diastolic function is grade I diastolic dysfunction. Right Ventricle Right ventricular systolic function is normal based on a normal TAPSE 2.2 cm. Right ventricular chamber dimension is not well visualized. Left Atria Left atrial chamber dimension is normal. Right Atria Right atrial chamber dimension is normal. Aortic Valve The aortic valve is trileaflet. There is no aortic valve stenosis. There is no aortic valve regurgitation. Pulmonic Valve There is no pulmonic regurgitation. Mitral Valve There is no mitral valve stenosis. There is no mitral valve regurgitation. Tricuspid Valve There is no tricuspid valve regurgitation. No pulmonary hypertension, estimated pulmonary arterial systolic pressure is 32 mmHg. Pericardium/Pleural There is no pericardial effusion. Inferior Vena Cava Normal inferior vena cava with >50% collapse upon inspiration consistent with normal right atrial pressure, 5 mmHg. Aorta The aortic root size at the sinus of Valsalva is normal. Left Ventricular Outflow Tract Name Value Normal LVOT 2D LVOT Diameter 2.4 cm LVOT Doppler LVOT Peak Gradient 2 mmHg LVOT Mean Gradient 1 mmHg LVOT VTI 14 cm LVOT VTI/AV VTI Ratio 0.8 LVOT Stroke Volume 60 ml LVOT CO 5.3 l/min LVOT CI 2.5 l/min/m2 Mitral Valve
[2020-07-01] MEDS: ENOXAPARIN 100 MG/ML SYRINGE 98 MG SUB-Q (00:02)
[2020-07-01] MEDS: ALBUTEROL SULFATE NEB 2.5 MG/0.5 ML INH INHALATION ×4 (02:18→22:10)
[2020-07-01] MEDS: IPRATROPIUM BR 0.02% INH SOLN 0.5 MG/2.5 ML VIAL INHALATION ×4 (02:18→22:10)
[2020-07-01 04:40] LABS: Basophils Absolute Auto 0.1 K/mm3 (0.0-0.1); Basophils Percent Auto 1.3 % (0.2-1.2); Eosinophils Absolute Auto 0.9 K/mm3 (0-0.3); Eosinophils Percent Auto 10.5 % (0-4.4); Hemoglobin 13.6 g/dL (14.0-18.0); Immature Granulocyte Percent A 1.2 % (0-0.5); Lymphocytes Absolute Auto 1.02 K/mm3 (0.9-3.2); Lymphocytes Percent Auto 12.3 % (18.3-44.2); Mean Corpuscular HGB Conc 33.2 g/dl (32-36); Mean Corpuscular Hemoglobin 30.2 pg (26-34); Mean Corpuscular Volume 90.9 fl (80-100); Mean Platelet Volume 9.2 fl (7.4-10.4); Monocytes Absolute Auto 1.2 K/mm3 (0.1-0.6); Monocytes Percent Auto 14.2 % (2.6-8.5); Neutrophils Percent Auto 60.5 % (45.5-73.1); Platelet Count Result 466 k/mm3 (150-375); Red Blood Count 4.51 M/mm3 (4.6-6.20); Red Cell Distribution Width 14.3 % (11.5-14.5); White Blood Count 8.3 K/mm3 (4.5-10.0)
[2020-07-01 04:55] LABS: Anion Gap 4 mmol/L (8-16); Blood Urea Nitrogen 13 mg/dL (9-20); Calcium 8.6 mg/dL (8.4-10.2); Carbon Dioxide 27 mmol/L (22-30); Chloride 103 mmol/L (98-107); Estimated CRCL calculation 74 ml/min; Estimated Glomerular Filt Rate > 60; Glucose 126 mg/dL (75-110); Magnesium 1.8 mg/dL (1.6-2.3); Potassium 4.2 mmol/L (3.4-5.0); Sodium 134 mmol/L (137-145)
[2020-07-01] MEDS: guaiFENesin 12 HR 600 MG TABCR PO ×2 (09:57→19:51)
[2020-07-01] MEDS: lisinopriL 20 MG TABLET PO (09:57)
[2020-07-01] MEDS: ROSUVASTATIN 5 MG TABLET PO (09:57)
[2020-07-01] MEDS: APIXABAN 5 MG TABLET 10 MG PO ×2 (12:52→19:51)
--- NOTE | 2020-07-01 15:38 | PM.DS ---
DS: Summary Time Spent with Patient Time attestation: Total time spent providing and/or coordinating discharge services: DS: Data Data Completed and Pending Labs on day of discharge: Labs from last 24 hours 07/01/20 07/01/20 04:21 04:21 WBC 8.3 RBC 4.51 L Hgb 13.6 L Hct 41.0 L MCV 90.9 MCH 30.2 MCHC 33.2 RDW 14.3 Plt Count 466 H MPV 9.2 Immature Gran % (Auto) 1.2 H Neut % (Auto) 60.5 Lymph % (Auto) 12.3 L [place] % (Auto) 14.2 H Eos % (Auto) 10.5 H Baso % (Auto) 1.3 H Lymph # (Auto) 1.02 [place] # (Auto) 1.2 H Eos # (Auto) 0.9 H Baso # (Auto) 0.1 Abs Immat Gran (auto) 0.10 H Absolute Neuts (auto) 5.0 Absolute Nucleated RBC 0.0 Nucleated RBC % 0.0 Sodium 134 L Potassium 4.2 Chloride 103 Carbon Dioxide 27 Anion Gap 4 L BUN 13 Creatinine 0.90 Estim Creat Clear Calc 74 Estimated GFR > 60 Glucose 126 H Calcium 8.6 Magnesium 1.8 Discharge Plan Discharge Attending physician on discharge: Gerald Rojas Discharging Clinician: Gerald Rojas Patient Disposition: Home, Self-Care Discharge Instructions: patient to follow up with his primary care provider as soon as possible, patient is instructed if any symptoms, redevelop to go to nearest ER. Patient Instructions: Antibiotic Form, Pulmonary Embolism (GEN) Stand Alone Forms: General Discharge Information Follow-up/Referrals: Saul Hoff MD [Primary Care Provider] - Discharge Medications: New benzonatate 100 mg Capsule 100 mg PO Q8HR PRN (Reason: cough) Qty: 20 RF: 0 guaifenesin [Mucus Relief ER] 600 mg Tablet Extended Release 12hr 600 mg PO Q12HR Qty: 20 RF: 0 apixaban 5 mg (74 tabs) tablets,dose pack See Rx Instructions .ROUTE .COMPLEX Qty: 74 RF: 0 albuterol sulfate [Proventil HFA] 90 mcg/actuation HFA aerosol inhaler 1 inh inhalation QID PRN (Reason: shortness of breath or wheezing) Qty: 8.5 RF: 0 Continued rosuvastatin [Crestor] 5 mg tablet 5 mg PO DAILY Qty: 30 RF: 2 lisinopril 20 mg tablet 20 mg PO DAILY Qty: 90 RF: 1 Date of admission: 06/29/20 15:10 Primary Care Provider: Saul Hoff Admitting Provider: Casey Stovall M.A. Attending physician on admission: Casey Stovall M.A. Condition: Improved Quality VTE Prophylaxis VTE prophylaxis: pharmacologic ordered
--- NOTE | 2020-07-01 17:02 | PM.IMPN ---
Progress Note: A&P Assessment and Plan (1) Pulmonary emboli: Qualifiers: Acute cor pulmonale presence: without acute cor pulmonale Chronicity: acute Pulmonary embolism type: unspecified Qualified Code(s): I26.99 - Other pulmonary embolism without acute cor pulmonale Code(s): I26.99 - Other pulmonary embolism without acute cor pulmonale Status: Acute Assessment and Plan: heparin drip was stopped and he was started on lovenox . To be started one hour after the heparin was stopped . may consider. Eliquis or xarelto. I explained that he may be on it for 3-6 months. 07/01/20 17:02 06/30Patient is 69-year-old male who was diagnosed with a COVID-19 May 30 he was treated with remdesivir and Decadron. and discharged home on 06/08/20 however patient presented with shortness of breath he was desaturating to further evaluate patient had a CTA scan of the chest which showed patient has a pulmonary emboli patient initially started on heparin drip and switch over Lovenox patient also had a lower extremity Doppler is negative for DVT, patient states feeling little better compared to when he arrived still complains of shortness of breath, but denies any fever or chills currently patient is requiring 2 L of oxygen to further evaluate will do cardiac echo, will discuss with auto care center manager and switch over patient to is Eliquis or Xarelto tomorrow and further recommendation to follow. 07/01 today patient was clinically stable requiring 1 L of oxygen, started the patient on Eliquis today, patient had a cardiac echo essentially normal systolic function and there was no right heart strain, plan was to discharge the patient home today however during home O2 eval patient was desaturating at 3 L of oxygen with exertion, will monitor patient over night and reassess patient tomorrow (2) History of COVID-19: Code(s): Z86.16 - Personal history of COVID-19 Status: Acute Assessment and Plan: the patient had a full treatment of remdesivir and decadron When he was admitted here last night. The patient had gone home with oxygen at 1 L per nasal cannula to be used on exertion. The patient is currently on 3 L per nasal cannula. The patient asked if he needed to get off of oxygen before he went home and at the time I did not realize that he has home oxygen. I did explain that we would take it day by day and see how he feels. (3) Dyslipidemia: Code(s): E78.5 - Hyperlipidemia, unspecified Status: Chronic Assessment and Plan: Continue with Crestor. (4) HTN (hypertension): Qualifiers: Hypertension type: essential hypertension Qualified Code(s): I10 - Essential (primary) hypertension Code(s): I10 - Essential (primary) hypertension Status: Chronic Assessment and Plan: Continue with lisinopril Subjective Date/time seen: 07/01/20 17:02 06/30Patient is 69-year-old male who was diagnosed with a COVID-May 30 he was treated with remdesivir and Decadron. and discharged home on 06/08/20 however patient presented with shortness of breath he was desaturating to further evaluate patient had a CTA scan of the chest which showed patient has a pulmonary emboli patient initially started on heparin drip and switch over Lovenox patient also had a lower extremity Doppler is negative for DVT, patient states feeling little better compared to when he arrived still complains of shortness of breath, but denies any fever or chills currently patient is requiring 2 L of oxygen to further evaluate will do cardiac echo, will discuss with auto care center manager and switch over patient to is Eliquis or Xarelto tomorrow and further recommendation to follow. 07/01 today patient was clinically stable requiring 1 L of oxygen, started the patient on Eliquis today, patient had a cardiac echo essentially normal systolic function and there was no right heart strain, plan was to discharge the patient home today terrence
--- NOTE | 2020-07-01 17:20 | PC.NURSE ---
This patient, Jemal Roa, was transferred to [facility] on 07/01/20 at 1721. Personal belongings sent with patient. Report given to ELMER Wilson. Appropriate documentation sent with patient.
[2020-07-02] VITALS (13 sets, daily range): BP systolic 121; BP diastolic 95; PULSE 90–121; RESP 18; TEMP 36.5; O2SAT 85–97
[2020-07-02 05:42] LABS: Basophils Absolute Auto 0.1 K/mm3 (0.0-0.1); Basophils Percent Auto 1.5 % (0.2-1.2); Eosinophils Absolute Auto 0.9 K/mm3 (0-0.3); Eosinophils Percent Auto 9.1 % (0-4.4); Hematocrit 41.4 % (42.0-52.0); Hemoglobin 13.8 g/dL (14.0-18.0); Immature Granulocyte Absolute 0.14 K/mm3 (0.00-0.031); Immature Granulocyte Percent A 1.5 % (0-0.5); Lymphocytes Percent Auto 12.7 % (18.3-44.2); Mean Corpuscular HGB Conc 33.3 g/dl (32-36); Mean Corpuscular Hemoglobin 29.5 pg (26-34); Mean Corpuscular Volume 88.5 fl (80-100); Mean Platelet Volume 9.3 fl (7.4-10.4); Monocytes Absolute Auto 1.5 K/mm3 (0.1-0.6); Monocytes Percent Auto 15.7 % (2.6-8.5); Neutrophils Absolute Auto 5.6 K/mm3 (1.3-6.7); Neutrophils Percent Auto 59.5 % (45.5-73.1); Platelet Count Result 504 k/mm3 (150-375); Red Blood Count 4.68 M/mm3 (4.6-6.20); Red Cell Distribution Width 14.2 % (11.5-14.5); White Blood Count 9.4 K/mm3 (4.5-10.0)
[2020-07-02 05:54] LABS: Anion Gap 1 mmol/L (8-16); Blood Urea Nitrogen 15 mg/dL (9-20); Calcium 8.9 mg/dL (8.4-10.2); Carbon Dioxide 29 mmol/L (22-30); Chloride 103 mmol/L (98-107); Estimated CRCL calculation 74 ml/min; Estimated Glomerular Filt Rate > 60; Glucose 100 mg/dL (75-110); Potassium 4.2 mmol/L (3.4-5.0); Sodium 133 mmol/L (137-145)
[2020-07-02] MEDS: ALBUTEROL SULFATE NEB 2.5 MG/0.5 ML INH INHALATION ×2 (08:35→14:12)
[2020-07-02] MEDS: IPRATROPIUM BR 0.02% INH SOLN 0.5 MG/2.5 ML VIAL INHALATION ×2 (08:36→14:12)
[2020-07-02] MEDS: lisinopriL 20 MG TABLET PO (09:22)
[2020-07-02] MEDS: APIXABAN 5 MG TABLET 10 MG PO (09:22)
[2020-07-02] MEDS: guaiFENesin 12 HR 600 MG TABCR PO (09:22)
[2020-07-02] MEDS: ROSUVASTATIN 5 MG TABLET PO (09:23)
--- NOTE | 2020-07-02 09:42 | PC.NURSE ---
DR. MILLIGAN HERE TO SEE PT. CONDITION UPDATE GIVEN. ORDER RECEIVED TO GET NEW HOME O2 EVAL.
--- NOTE | 2020-07-02 11:40 | PC.NURSE ---
RESPIRATORY HERE TO SEE PT FOR HOME O2 EVALUATION.
--- NOTE | 2020-07-02 12:02 | HOMEO2EVAL ---
Home Oxygen Evaluation RC: Home Oxygen (O2) Evaluation Start: 07/02/20 09:44 Freq: ONCE Status: Active Protocol: RPE Activity Type Activity Date Activity User E-Sign Co-Sign Detail Recorded Client Recorded Date Recorded By Document 07/02/20 11:30 [email or web address] [email or web address] 07/02/20 12:02 WEI Document 07/02/20 11:32 [email or web address] [email or web address] 07/02/20 12:02 WEI Document 07/02/20 11:34 WEI [email or web address] 07/02/20 12:02 WEI Document 07/02/20 11:36 WEI [email or web address] 07/02/20 12:02 WEI Document 07/02/20 11:38 WEI [email or web address] 07/02/20 12:02 WEI Document 07/02/20 11:40 [email or web address] [email or web address] 07/02/20 12:02 WEI Document 07/02/20 11:50 [email or web address] [email or web address] 07/02/20 12:02 WEI 07/02/20 07/02/20 07/02/20 11:30 11:32 11:34 Home O2 Evaluation Test Phase Resting Resting Resting Oxygen Delivery Room Air Nasal Cannula Nasal Cannula Oxygen Flow Rate (L/min) 1 2 Pulse Oximetry (90-100 %) 85 L 87 L 92 Pulse Rate (60-100 beats/min) 91 Activity Tolerance Ambulation Distance (feet) 500 Home Oxygen Evaluation Comments Treatment Charges O2 Evaluation 07/02/20 07/02/20 07/02/20 11:36 11:38 11:40 Home O2 Evaluation Test Phase Exercise Exercise Exercise Oxygen Delivery Nasal Cannula Nasal Cannula Nasal Cannula Oxygen Flow Rate (L/min) 2 3 4 Pulse Oximetry (90-100 %) 86 L 87 L 92 Pulse Rate (60-100 beats/min) 118 H 120 H 121 H Activity Tolerance Excellent Ambulation Distance (feet) Home Oxygen Evaluation Comments Treatment Charges 07/02/20 11:50 Home O2 Evaluation Test Phase Resting Oxygen Delivery Nasal Cannula Oxygen Flow Rate (L/min) 2 Pulse Oximetry (90-100 %) 94 Pulse Rate (60-100 beats/min) 90 Activity Tolerance Ambulation Distance (feet) Home Oxygen Evaluation Comments Pt requires 2 liters at rest and 4 liters with activity Treatment Charges
--- NOTE | 2020-07-02 13:47 | PCRCNOTE ---
HOME O2 EVAL DONE, PT REQUIRES 2 L AT REST AND 4 L WITH ACTIVITY. SET UP WITH [facility]. I WILL DROP OFF TANK IN ROOM PRIOR TO D/C FOR PATIENT TO TRANSPORT HOME, ONCE HOME HE HAS BEEN INSTRUCTED TO CALL [facility]. PT UNDERSTANDS. RN IS AWARE.
--- NOTE | 2020-07-02 14:40 | PC.NURSE ---
O2 TANK DELIVERED TO PT. BY [facility] FOR DISCHARGE HOME. HOME O2 ARRANGEMENTS HAVE BEEN MADE WITH [facility] BY [facility]. PT. IS TO WEAR 2L O2 NC AT REST AND INCREASE TO 4L O2 NC WITH ACTIVITY.
--- NOTE | 2020-07-02 14:48 | PM.DS ---
DS: Admitting Diagnosis Admitting Diagnosis Admitting Diagnosis: Shortness of breath DS: Discharge Diagnosis Discharge Diagnosis (1) Pulmonary emboli: Qualifiers: Acute cor pulmonale presence: without acute cor pulmonale Chronicity: acute Pulmonary embolism type: unspecified Qualified Code(s): I26.99 - Other pulmonary embolism without acute cor pulmonale Code(s): I26.99 - Other pulmonary embolism without acute cor pulmonale Status: Acute Assessment and Plan: heparin drip was stopped and he was started on lovenox . To be started one hour after the heparin was stopped . may consider. Eliquis or xarelto. I explained that he may be on it for 3-6 months. 06/30Patient is 69-year-old male who was diagnosed with a COVID-19 May 30 he was treated with remdesivir and Decadron. and discharged home on 06/08/20 however patient presented with shortness of breath he was desaturating to further evaluate patient had a CTA scan of the chest which showed patient has a pulmonary emboli patient initially started on heparin drip and switch over Lovenox patient also had a lower extremity Doppler is negative for DVT, patient states feeling little better compared to when he arrived still complains of shortness of breath, but denies any fever or chills currently patient is requiring 2 L of oxygen to further evaluate will do cardiac echo, will discuss with ambulatory care nurse and switch over patient to is Eliquis or Xarelto tomorrow and further recommendation to follow. 07/01 today patient was clinically stable requiring 1 L of oxygen, started the patient on Eliquis today, patient had a cardiac echo essentially normal systolic function and there was no right heart strain, plan was to discharge the patient home today however during home O2 eval patient was desaturating at 3 L of oxygen with exertion, will monitor patient over night and reassess patient tomorrow (2) History of COVID-19: Code(s): Z86.16 - Personal history of COVID-19 Status: Acute Assessment and Plan: the patient had a full treatment of remdesivir and decadron When he was admitted here last night. The patient had gone home with oxygen at 1 L per nasal cannula to be used on exertion. The patient is currently on 3 L per nasal cannula. The patient asked if he needed to get off of oxygen before he went home and at the time I did not realize that he has home oxygen. I did explain that we would take it day by day and see how he feels. (3) Dyslipidemia: Code(s): E78.5 - Hyperlipidemia, unspecified Status: Chronic Assessment and Plan: Continue with Crestor. (4) HTN (hypertension): Qualifiers: Hypertension type: essential hypertension Qualified Code(s): I10 - Essential (primary) hypertension Code(s): I10 - Essential (primary) hypertension Status: Chronic Assessment and Plan: Continue with lisinopril DS: Summary Hospital Course Reason for hospitalization: Chief Complaint: shortness of breath Narrative: Jemal Roa is a 69 year old male Who I saw on 06/01/2020 for COVID-19. The patient was diagnosed with COVID on the 30 of May. The patient did receive receive oxygen at that time and he also got remdesivir and Decadron. The patient had been on subcu Lovenox while he was admitted to the hospital. The patient did have CT a pulmonary which was negative for PE at that time. The patient had finished the antiviral during his day patient was discharged on albuterol and dexamethasone. Patient was requiring oxygen at 1 L per nasal cannula at home with activity. Today the patient came to the emergency department for shortness of breath and a cough for the last 3 days. The patient stated that his shortness of breath began all of a sudden. The patient stated that he was monitoring his oxygen level at home and his oxygen level dropped down the 85-87% today. The patient reports some weakness but no chest pa
--- NOTE | 2020-07-02 15:40 | PC.NURSE ---
DISCHARGE INSTRUCTIONS GIVEN AND REVIEWED W/ PT. QUESTIONS ANSWERED. VOICED UNDERSTANDING OF ALL. PT. AWAITS ARRIVAL OF FOR RIDE HOME. NEW MEDS HAVE ALREADY BEEN TRANSMITTED TO PT'S PHARMACY. WILL CONTINUE TO MONITOR.
--- NOTE | 2020-07-02 15:55 | PC.NURSE ---
DISCHARGED HOME, OUT VIA WC TO 'S WAITING CAR, WITH ALL PERSONAL BELONGINGS, DISCHARGE PACKET AND HOME O2 TANK ON AT 4L NC. VOICES NO C/O. NO DISTRESS NOTED.
== END 2020-07-02 15:55 | disposition home or self-care (01) | DRG 176 ==
LOC: ANHED 15:26 → ANHIMU 18:07 → ANHCPC 07-01 23:05 → ANHIMU 07-05 09:40
PROVIDERS: Nurse Practitioner; Admitting Provider Internal Medicine; Emergency Provider Emergency Medicine; PCP Internal Medicine; Visit Provider Family Medicine
DX: I26.99 Other pulmonary embolism without acute cor pulmonale (principal); Z86.16 Personal history of COVID-19; R09.02 Hypoxemia; E78.5 Hyperlipidemia, unspecified; I10 Essential (primary) hypertension; Z79.899 Other long term (current) drug therapy
CPT/HCPCS: 36415; 36600; 71045; 71275; 80048; 80053; 82805; 83735; 83880; 84443; 84484; 85025; 85380; 85610; 85730; 93005; 93306; 93970; 94618; 94640; 99285; A9270; J1644; J1650; Q9967

== ENCOUNTER 2021-05-20 07:03 | Outpatient (CLI) | payer MEDICARE, SELFPAY ==
[2021-05-20 07:42] LABS: Basophils Absolute Auto 0.1 K/mm3 (0.0-0.1); Basophils Percent Auto 1.3 % (0.2-1.2); Eosinophils Absolute Auto 0.3 K/mm3 (0-0.3); Eosinophils Percent Auto 4.3 % (0-4.4); Hematocrit 47.4 % (42.0-52.0); Hemoglobin 15.5 g/dL (14.0-18.0); Immature Granulocyte Absolute 0.05 K/mm3 (0.00-0.031); Immature Granulocyte Percent A 0.7 % (0-0.5); Lymphocytes Absolute Auto 1.62 K/mm3 (0.9-3.2); Lymphocytes Percent Auto 23.4 % (18.3-44.2); Mean Corpuscular HGB Conc 32.7 g/dl (32-36); Mean Corpuscular Hemoglobin 29.9 pg (26-34); Mean Corpuscular Volume 91.3 fl (80-100); Mean Platelet Volume 9.5 fl (7.4-10.4); Monocytes Absolute Auto 0.9 K/mm3 (0.1-0.6); Monocytes Percent Auto 12.9 % (2.6-8.5); Neutrophils Percent Auto 57.4 % (45.5-73.1); Platelet Count Result 255 k/mm3 (150-375); Red Blood Count 5.19 M/mm3 (4.6-6.20); Red Cell Distribution Width 13.3 % (11.5-14.5); White Blood Count 6.9 K/mm3 (4.5-10.0)
[2021-05-20 08:07] LABS: Alanine Aminotransferase 19 U/L (4-50); Albumin Level 4.3 g/dL (3.5-5.1); Alkaline Phosphatase 74 U/L (38-126); Anion Gap 8 mmol/L (8-16); Aspartate Amino Transferase 29 U/L (17-59); Bilirubin,Total 0.8 mg/dL (0.2-1.3); Blood Urea Nitrogen 16 mg/dL (9-20); Carbon Dioxide 28 mmol/L (22-30); Chloride 101 mmol/L (98-107); Cholesterol 148 mg/dL (0-200); Estimated Glomerular Filt Rate 60; Glucose 104 mg/dL (65-110); HDL Direct 51 mg/dL; Potassium 4.1 mmol/L (3.4-5.0); Sodium 137 mmol/L (137-145); Triglycerides 110 mg/dL (<150)
[2021-05-20 08:08] LABS: Add Urine Microscopic? NO; Appearance Urine Clear (Clear); Bilirubin Urine Negative (Negative); Blood Urine Negative (Negative); Color Urine Yellow (Yellow); Glucose Urine UA Negative (Negative); Ketones Urine Negative (Negative); Leukocyte Esterase Ur Negative LEU/UL (NEGATIVE); Nitrate Urine Negative (Negative); Protein Urine Negative (Negative); Specific Grav Ur 1.017 (1.001-1.035); Urobilinogen Urine Negative mg/dL (<2.0)
[2021-05-20 08:18] LABS: LDL Cholesterol Direct 66 mg/dL
[2021-05-20 08:35] LABS: Prostate Specific Antigen 0.6 ng/mL (< OR = 4.0)
== END 2021-05-20 07:04 | disposition home or self-care (01) ==
PROVIDERS: PCP Internal Medicine; Visit Provider Internal Medicine
DX: E55.9 Vitamin D deficiency, unspecified (principal); E78.2 Mixed hyperlipidemia; I10 Essential (primary) hypertension; I26.99 Other pulmonary embolism without acute cor pulmonale; Z12.5 Encounter for screening for malignant neoplasm of prostate
CPT/HCPCS: 36415; 80053; 80061; 81003; 82306; 84153; 85025; G0103

== ENCOUNTER 2022-06-24 10:38 | Outpatient (CLI) | payer MEDICARE, SELFPAY ==
[2022-06-24 08:10] LABS: Hematocrit 50.4 % (42.0-52.0); Hemoglobin 16.4 g/dL (14.0-18.0); Mean Corpuscular HGB Conc 32.5 g/dl (32-36); Mean Corpuscular Hemoglobin 30.4 pg (26-34); Mean Corpuscular Volume 93.5 fl (80-100); Mean Platelet Volume 9.7 fl (7.4-10.4); Platelet Count Result 216 k/mm3 (150-375); Red Blood Count 5.39 M/mm3 (4.6-6.20); Red Cell Distribution Width 13.6 % (11.5-14.5); White Blood Count 6.4 K/mm3 (4.5-10.0)
[2022-06-24 08:24] LABS: Alanine Aminotransferase 34 U/L (6-50); Albumin Level 4.2 g/dL (3.5-5.1); Alkaline Phosphatase 70 U/L (38-126); Anion Gap 6 mmol/L (8-16); Aspartate Amino Transferase 44 U/L (17-59); Bilirubin,Total 1.2 mg/dL (0.2-1.3); Blood Urea Nitrogen 10 mg/dL (9-20); Calcium 8.5 mg/dL (8.4-10.2); Carbon Dioxide 28 mmol/L (22-30); Chloride 106 mmol/L (98-107); Cholesterol 107 mg/dL (0-200); Estimated Glomerular Filt Rate > 60; Glucose 99 mg/dL (65-110); HDL Direct 43 mg/dL; Phosphorus 2.7 mg/dL (2.5-4.5); Potassium 4.4 mmol/L (3.4-5.0); Sodium 140 mmol/L (137-145); Triglycerides 108 mg/dL (<150)
[2022-06-24 08:32] LABS: Hemoglobin A1C 5.5 % (<5.7)
[2022-06-24 08:35] LABS: LDL Cholesterol Direct 37 mg/dL
[2022-06-24 08:52] LABS: Prostate Specific Antigen 0.6 ng/mL (< OR = 4.0)
== END 2022-06-24 10:39 | disposition home or self-care (01) ==
PROVIDERS: PCP Internal Medicine; Visit Provider Internal Medicine
DX: I12.9 Hypertensive chronic kidney disease with stage 1 through stage 4 chronic kidney disease, or unspecified chronic kidney disease (principal); N18.2 Chronic kidney disease, stage 2 (mild); E78.5 Hyperlipidemia, unspecified; N40.0 Benign prostatic hyperplasia without lower urinary tract symptoms; E66.9 Obesity, unspecified; Z12.5 Encounter for screening for malignant neoplasm of prostate
CPT/HCPCS: 36415; 80053; 80061; 83036; 84100; 84153; 84443; 85027; G0103

== ENCOUNTER 2023-04-21 09:40 | Outpatient (CLI) | payer MEDICARE, SELFPAY ==
[2023-04-21 10:27] LABS: Alanine Aminotransferase 29 U/L (6-50); Albumin Level 4.4 g/dL (3.5-5.1); Alkaline Phosphatase 76 U/L (38-126); Anion Gap 7 mmol/L (8-16); Aspartate Amino Transferase 35 U/L (17-59); Blood Urea Nitrogen 16 mg/dL (9-20); Calcium 9.2 mg/dL (8.4-10.2); Carbon Dioxide 25 mmol/L (22-30); Chloride 104 mmol/L (98-107); Estimated Glomerular Filt Rate > 60; Glucose 83 mg/dL (65-110); Potassium 3.9 mmol/L (3.4-5.0); Sodium 136 mmol/L (137-145)
[2023-04-21 10:45] LABS: Vitamin D 25 Hydroxy 32.5 ng/mL
[2023-04-21 13:20] LABS: Hematocrit 47.9 % (42.0-52.0); Hemoglobin 15.7 g/dL (14.0-18.0); Mean Corpuscular HGB Conc 32.8 g/dl (32-36); Mean Corpuscular Hemoglobin 30.3 pg (26-34); Mean Corpuscular Volume 92.5 fl (80-100); Mean Platelet Volume 9.6 fl (7.4-10.4); Platelet Count Result 250 k/mm3 (150-375); Red Blood Count 5.18 M/mm3 (4.6-6.20); Red Cell Distribution Width 13.7 % (11.5-14.5); White Blood Count 9.2 K/mm3 (4.5-10.0)
== END 2023-04-21 09:41 | disposition home or self-care (01) ==
PROVIDERS: PCP Family Medicine; Visit Provider Family Medicine
DX: N18.2 Chronic kidney disease, stage 2 (mild) (principal); E55.9 Vitamin D deficiency, unspecified; I12.9 Hypertensive chronic kidney disease with stage 1 through stage 4 chronic kidney disease, or unspecified chronic kidney disease; E78.5 Hyperlipidemia, unspecified; M19.90 Unspecified osteoarthritis, unspecified site; E66.9 Obesity, unspecified
CPT/HCPCS: 36415; 80053; 82306; 85027

== ENCOUNTER 2023-12-02 11:04 | Outpatient (CLI) | payer MEDICARE, SELFPAY ==
[2023-12-02 11:31] LABS: Hematocrit 45.3 % (42.0-52.0); Hemoglobin 15.2 g/dL (14.0-18.0); Mean Corpuscular HGB Conc 33.6 g/dl (32-36); Mean Corpuscular Hemoglobin 30.3 pg (26-34); Mean Corpuscular Volume 90.4 fl (80-100); Mean Platelet Volume 9.7 fl (7.4-10.4); Platelet Count Result 215 k/mm3 (150-375); Red Blood Count 5.01 M/mm3 (4.6-6.20); Red Cell Distribution Width 13.6 % (11.5-14.5); White Blood Count 6.6 K/mm3 (4.5-10.0)
[2023-12-02 11:43] LABS: Alanine Aminotransferase 32 U/L (6-50); Albumin Level 4.4 g/dL (3.5-5.1); Alkaline Phosphatase 74 U/L (38-126); Anion Gap 9 mmol/L (4-12); Aspartate Amino Transferase 40 U/L (17-59); Bilirubin,Total 0.9 mg/dL (0.2-1.3); Blood Urea Nitrogen 17 mg/dL (9-20); Calcium 8.9 mg/dL (8.4-10.2); Carbon Dioxide 22 mmol/L (22-30); Chloride 106 mmol/L (98-107); Cholesterol 146 mg/dL (0-200); Estimated Glomerular Filt Rate > 60; Glucose 96 mg/dL (65-110); HDL Direct 46 mg/dL; Sodium 137 mmol/L (137-145); Triglycerides 182 mg/dL (<150)
[2023-12-02 11:55] LABS: LDL Cholesterol Direct 69 mg/dL
[2023-12-02 12:34] LABS: Vitamin D 25 Hydroxy 33.8 ng/mL
== END 2023-12-02 11:05 | disposition home or self-care (01) ==
PROVIDERS: PCP Family Medicine; Visit Provider Family Medicine
DX: E55.9 Vitamin D deficiency, unspecified (principal); E78.5 Hyperlipidemia, unspecified; I12.9 Hypertensive chronic kidney disease with stage 1 through stage 4 chronic kidney disease, or unspecified chronic kidney disease; N18.2 Chronic kidney disease, stage 2 (mild)
CPT/HCPCS: 36415; 80053; 80061; 82306; 85027

== ENCOUNTER 2024-06-30 09:15 | Outpatient (CLI) | payer MEDICARE, SELFPAY ==
[2024-06-30 10:15] LABS: Hematocrit 46.5 % (42.0-52.0); Hemoglobin 15.3 g/dL (14.0-18.0); Mean Corpuscular HGB Conc 32.9 g/dl (32-36); Mean Corpuscular Hemoglobin 30.7 pg (26-34); Mean Corpuscular Volume 93.4 fl (80-100); Mean Platelet Volume 9.9 fl (7.4-10.4); Platelet Count Result 250 k/mm3 (150-375); Red Blood Count 4.98 M/mm3 (4.6-6.20); Red Cell Distribution Width 13.6 % (11.5-14.5); White Blood Count 6.1 K/mm3 (4.5-10.0)
[2024-06-30 10:35] LABS: Alanine Aminotransferase 26 U/L (6-50); Albumin Level 4.1 g/dL (3.5-5.1); Alkaline Phosphatase 70 U/L (38-126); Anion Gap 4 mmol/L (4-12); Aspartate Amino Transferase 37 U/L (17-59); Blood Urea Nitrogen 14 mg/dL (9-20); Calcium 9.1 mg/dL (8.4-10.2); Carbon Dioxide 29 mmol/L (22-30); Chloride 104 mmol/L (98-107); Cholesterol 163 mg/dL (0-200); Estimated Glomerular Filt Rate > 60; Glucose 90 mg/dL (65-110); HDL Direct 48 mg/dL; Potassium 4.4 mmol/L (3.4-5.0); Sodium 137 mmol/L (137-145); Triglycerides 139 mg/dL (<150)
[2024-06-30 10:46] LABS: LDL Cholesterol Direct 79 mg/dL
[2024-06-30 11:02] LABS: Prostate Specific Antigen 0.9 ng/mL (< OR = 4.0)
[2024-06-30 11:08] LABS: Vitamin D 25 Hydroxy 37.7 ng/mL
--- OUTSIDE RECORDS SUMMARY | 2024-07-06 05:58 | XMS_ITS | Continuity of Care Document ---
Author Organization [facility] Address [address] [place] [address] Phone Care Team Providers Care Welfare Service Aide Name Role Phone Manuel SAL, Florentin Unavailable Unavaila ble Procedures Procedure Date CATARACT SURG W/IOL, 1 STAGE CATARACT SURG W/IOL, 1 STAGE ADMINISTRATION FEE OFFICE/OUTPATIENT VISIT, [facility] OPHTHALMIC BIOMETRY OPHTHALMIC BIOMETRY Advance Directives Directive Yes / No Effective Date File Name No Information Encounters Encounter Description Practice Location Reason(s) For Visit Diagnoses Date Provider Providers Copied on Encounter [facility], [id number] [place] [address] [address], [place], [place], [address], tel:[phone] [facility] [place] No Information 8 Manuel Lerma. [address], [address], [place], [place], [address], [place]. tel:[phone] Referring Provider: Florentin glez, [address], [place], [place], [address]. tel:[phone] [facility], [address] [place] [address] [address], [place], [place], [address], tel:[phone] [facility] No Information 8 Manuel Lerma. [address], [address], [place], [place], [address], [place]. tel:[phone] Referring Provider: Florentin Krishnasam y, [address], [place], [place], [address]. tel:[phone] OFFICE/OUTPA TIENT VISIT, [facility], [address], [place], [place], [address], tel:[phone] [facility] No Information 7 Manuel Lerma. [address], [address], [place], [place], [address], [place]. tel:[phone] Referring Provider: Florentin glez, [address], [place], [place], [address]. tel:[phone] Family History Family Member Type Diagnosis Age At Onset No Information Payers Payer name Insurance type Covered republican ID Authoriza tion(s) [place] [id number] Social History Type Description Quantity Date Captured Comments Sex Male Smoking Status No Information Chief Complaint And Reason For Visit No Information Plan Of Treatment Date Type Action Status No Information History Of Present Illness Encounter Date Complaint History Of Prese nt Illness No Information Instructions Date Instruction Additional Infor mation No Information Assessments Type Assessment Date No Information
== END 2024-06-30 09:16 | disposition home or self-care (01) ==
LOC: ANHLAB 09:19
PROVIDERS: PCP Family Medicine; Visit Provider Family Medicine
DX: N40.0 Benign prostatic hyperplasia without lower urinary tract symptoms (principal); E55.9 Vitamin D deficiency, unspecified; E78.5 Hyperlipidemia, unspecified; E66.9 Obesity, unspecified; Z00.00 Encounter for general adult medical examination without abnormal findings; Z12.5 Encounter for screening for malignant neoplasm of prostate; I12.9 Hypertensive chronic kidney disease with stage 1 through stage 4 chronic kidney disease, or unspecified chronic kidney disease; N18.2 Chronic kidney disease, stage 2 (mild)
CPT/HCPCS: 36415; 80053; 80061; 82306; 84153; 85027; G0103

== ENCOUNTER 2025-01-09 11:35 | Outpatient (CLI) | payer MEDICARE, SELFPAY ==
--- OUTSIDE RECORDS SUMMARY | 2025-01-09 11:39 | XMS_ITS | Patient Health Record ---
Author Organization [facility] Address [address] [place], [place] [id number] Care Team Providers Care Grey Inspector Name Role Phone JOHNNA PERALES Unavailable [phone] Saul Hoff Unavailable Unavailable Reason For Referral No Information Medications Medication SIG (Take, Route, Frequency, Duration) Notes Start Date End Date Status Lisinopril 20 MG Oral Tablet ORAL lisinopril 20 MG Oral TabletOriginal Medicationlisinopril 20 MG Oral Tablet *Reorder from [email or web address] for eRx and Interaction Alerts* 05/17/2020 Active Plan Of Treatment No Information Insurance Providers Payer Name Payer Address Payer Phone Subscriber Number Group Number Insured Name Patient Relationship to Insured Coverage Start Date Coverage End Date A[employer] [address] [place] [phone] [id number] ANDRES OLSON Self - patient is the insured
--- OUTSIDE RECORDS SUMMARY | 2025-01-09 11:39 | XMS_ITS | Continuity of Care Document ---
Author Organization [facility] Address [address] [place] [address] [address] [place] [address] Phone Care Team Providers Care Compliance Engineer Name Role Phone Manuel SAL, Florentin Unavailable Unavaila ble Procedures Procedure Date CATARACT SURG W/IOL, 1 STAGE CATARACT SURG W/IOL, 1 STAGE ADMINISTRATION FEE OFFICE/OUTPATIENT VISIT, [facility] OPHTHALMIC BIOMETRY OPHTHALMIC BIOMETRY Advance Directives Directive Yes / No Effective Date File Name No Information Encounters Encounter Description Practice Location Reason(s) For Visit Diagnoses Date Provider Providers Copied on Encounter [facility], [address] [place] [address] [address], [place], [place], [address], tel:[phone] [facility] [place] No Information 8 Manuel Lerma. [address], [place], [place], [address], [place]. tel:[phone] Referring Provider: Florentin glez, [address], [place], [address] . tel:[phone] [facility], [address] [place] [address] [address], [place], [place], [address], tel:[phone] [facility] No Information 8 Manuel Lerma. [address], [place], [place], [address], [place]. tel:[phone] Referring Provider: Florentin glez, [address], [place], [address] . tel:[phone] OFFICE/OUTPA TIENT VISIT, [facility], [address] [facility] [address], [place], [place], [address], tel:[phone] [facility] No Information 7 Manuel Lerma. [address], [place], [place], [address], [place]. tel:[phone] Referring Provider: Florentin glez, [address], [place], [address] . tel:[phone] Family History Family Member Type Diagnosis Age At Onset No Information Payers Payer name Insurance type Covered republican ID Authoriza tion(s) [place] [id number] Social History Type Description Quantity Date Captured [...]
[2025-01-09 12:28] LABS: Hematocrit 44.5 % (42.0-52.0); Hemoglobin 14.5 g/dL (14.0-18.0); Mean Corpuscular HGB Conc 32.6 g/dl (32-36); Mean Corpuscular Hemoglobin 30.2 pg (26-34); Mean Corpuscular Volume 92.7 fl (80-100); Platelet Count Result 234 k/mm3 (150-375); Red Blood Count 4.80 M/mm3 (4.6-6.20); White Blood Count 7.4 K/mm3 (4.5-10.0)
[2025-01-09 12:59] LABS: Alanine Aminotransferase 22 U/L (6-50); Albumin Level 4.2 g/dL (3.5-5.1); Alkaline Phosphatase 78 U/L (38-126); Anion Gap 5 mmol/L (4-12); Aspartate Amino Transferase 37 U/L (17-59); Bilirubin,Total 1.2 mg/dL (0.2-1.3); Blood Urea Nitrogen 18 mg/dL (9-20); Calcium 9.6 mg/dL (8.4-10.2); Carbon Dioxide 27 mmol/L (22-30); Chloride 102 mmol/L (98-107); Estimated Glomerular Filt Rate 59; Glucose 91 mg/dL (65-110); Potassium 4.2 mmol/L (3.4-5.0); Sodium 134 mmol/L (137-145); Total Protein 7.0 g/dL (6.3-8.2)
[2025-01-09 17:48] LABS: Vitamin B12 244.0 pg/mL (239-931)
== END 2025-01-09 11:36 | disposition home or self-care (01) ==
PROVIDERS: PCP Family Medicine; Visit Provider Family Medicine
DX: I26.99 Other pulmonary embolism without acute cor pulmonale (principal); I12.9 Hypertensive chronic kidney disease with stage 1 through stage 4 chronic kidney disease, or unspecified chronic kidney disease; N18.2 Chronic kidney disease, stage 2 (mild); E55.9 Vitamin D deficiency, unspecified; E66.9 Obesity, unspecified; Z00.01 Encounter for general adult medical examination with abnormal findings
CPT/HCPCS: 36415; 80053; 82306; 82607; 85027

== ENCOUNTER 2025-02-27 14:58 | Outpatient (CLI) | payer MEDICARE, SELFPAY ==
--- OUTSIDE RECORDS SUMMARY | 2017-09-27 09:00 | XMS_ITS | Continuity of Care Document ---
Author Organization [facility] Address [id number] [place] [address] [address] [place] [address] Phone Care Team Providers Care Rotary Drier Feeder Name Role Phone Manuel SAL, Florentin Unavailable Unavaila ble Procedures Procedure Date CATARACT SURG W/IOL, 1 STAGE CATARACT SURG W/IOL, 1 STAGE ADMINISTRATION FEE OFFICE/OUTPATIENT VISIT, NEW OPHTHALMIC BIOMETRY OPHTHALMIC BIOMETRY Advance Directives Directive Yes / No Effective Date File Name No Information Encounters Encounter Description Practice Location Reason(s) For Visit Diagnoses Date Provider Providers Copied on Encounter [facility], [address] [place] [address] [address], [place], [place], [id number], tel:[phone] [facility] No Information 8 Manuel Lerma. [address], [address], [place], [place], [address], [place]. tel:[phone] Referring Provider: Florentin glez, [address], [place], [address] . tel:[phone] [facility], [id number] [place] [address] [address], [place], [place], [id number], tel:[phone] [facility] No Information 8 Manuel Lerma. [address], [address], [place], [place], [address], [place]. tel:[phone] Referring Provider: Florentin glez, [address], [place], [address] . tel:[phone] OFFICE/OUTPA TIENT VISIT, [facility], [address] [facility], [place], [place], [id number], tel:[phone] [facility] No Information 7 Manuel Lerma. [address], [address], [place], [place], [address], . tel:[phone] Referring Provider: Florentin glez, [address], [place], [address] . tel:[phone] Family History Family Member Type Diagnosis Age At Onset No Information Payers Payer name Insurance type Covered constitution party ID Authoriza tion(s) MEDIC[place] OF [place] [id number] Social History Type Description Quantity Date Captured Comments Sex Male Smoking Status No Information Sexual Orientation Don't Know Chief Complaint And Reason For Visit No Information Reason For Referral Reason For Referral No Information History Of Present Illness Encounter Date Complaint History Of Prese nt Illness No Information Functional Status Date Functional Assessmen t No Information Instructions Date Instruction Additional Infor mation No Information Assessments Type Assessment Date No Information Patient Care Teams Name Effective Dates (start - stop) Status Members No Information
--- NOTE | ~2025-02-27 | US_ITS ---
US soft tissue upper back 02/27/2025 15:55 Indication: Localized swelling palpable mass on the mid back. Patient reports prior surgical spinal fixation in 2010 with lump appearing shortly after surgery. Procedure: Ultrasound of the mid back soft tissues Comparison: No prior studies for comparison. Findings: Ultrasound demonstrates hypoechoic fluid collection in the area of palpable concern measuring 4.5 x 1 x 4.2 cm. This fluid contains low-level internal echoes with slightly irregular wall. There is posterior acoustic enhancement without significant internal vascularity. Impression: 1: Hypoechoic fluid collection mid back compatible with chronic postoperative seroma, liquefied hematoma or chronic abscess. Less likely consideration includes postoperative pseudocyst or cystic change related to prior hardware placement. Consider correlation with MRI of the thoracic spine/soft tissues with contrast to assess for sinus tract, communication with hardware or underlying infection. Aspiration could be performed if infection is suspected. Reviewed, dictated and finalized at location O. Impression: 1: Hypoechoic fluid collection mid back compatible with chronic postoperative s eroma, liquefied hematoma or chronic abscess. Less likely consideration include s postoperative pseudocyst or cystic change related to prior hardware placement . Consider correlation with MRI of the thoracic spine/soft tissues with contras t to assess for sinus tract, communication with hardware or underlying infectio n. Aspiration could be performed if infection is suspected.
--- OUTSIDE RECORDS SUMMARY | 2025-02-27 16:28 | XMS_ITS | Patient Health Record ---
Author Organization [facility] Address [address] [place], [place] [address] Care Team Providers Care Remote Operations Producer Name Role Phone JOHNNA PERALES Unavailable [phone] Saul Hoff Unavailable Unavailable Reason For Referral No Information Medications Medication SIG (Take, Route, Frequency, Duration) Notes Start Date End Date Status Lisinopril 20 MG Oral Tablet ORAL lisinopril 20 MG Oral TabletOriginal Medicationlisinopril 20 MG Oral Tablet *Reorder from [employer] for eRx and Interaction Alerts* 05/17/2020 Active Plan Of Treatment No Information Insurance Providers Payer Name Payer Address Payer Phone Subscriber Number Group Number Insured Name Patient Relationship to Insured Coverage Start Date Coverage End Date A[employer] [address] [place] [phone] [id number] ANDRES OLSON Self - patient is the insured
== END 2025-02-27 14:59 | disposition home or self-care (01) ==
PROVIDERS: PCP Family Medicine; Visit Provider Family Medicine
DX: R22.2 Localized swelling, mass and lump, trunk (principal)
CPT/HCPCS: 76604